=== PATIENT | male | born 1950 | race African-American/Black ===

== ENCOUNTER 2017-03-07 08:47 | Inpatient (IN) | payer OTHER, MEDICAID, MEDICARE ==
[~2017-03-07] VITALS: Ht 180.3 cm; Wt 80.1 kg
[~2017-03-07 08:47] MED LIST: ASPI81 PO; GLIP5 PO; GLUCTAB PO; PRIN10TA PO; TAB-TAB PO; TRAV0.00 EACH EYE
[2017-03-07 08:48] VITALS: BP 226/96; PULSE 99; RESP 18; TEMP 98.6; O2SAT 99
[2017-03-07] MEDS ORDERED: PRAV20TA2 PO (09:13)
[2017-03-07] MEDS ORDERED: METF500T PO (09:13)
[2017-03-07] MEDS ORDERED: LISI10TA3 PO (09:13)
[2017-03-07] MEDS ORDERED: GLIP5TAB8 PO (09:13)
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
[2017-03-07] MEDS ORDERED: SODIUM CHLORIDE 0.9% FLUSH 10 ML FLUSH IVF PRN (10:30)
[2017-03-07 10:36] LABS: AUTOMATED NEUTROPHIL # 3.1 TH/MM3 (1.8-7.7); BASOPHIL % 0.7 % (0.0-2.0); EOSINOPHIL # 0.2 TH/MM3 (0-0.4); EOSINOPHIL % 2.5 % (0.0-4.0); HEMOGLOBIN 13.4 GM/DL (13.0-17.0); LYMPH % 35.3 % (9.0-44.0); LYMPHOCYTE # 2.2 TH/MM3 (1.0-4.8); MEAN CELL VOLUME 86.2 FL (80.0-100.0); MEAN CORPUSCULAR HEMOGLOBIN 28.2 PG (27.0-34.0); MEAN CORPUSCULAR HGB CONC 32.7 % (32.0-36.0); MEAN PLATELET VOLUME 9.8 FL (7.0-11.0); MONO % 12.2 % (0.0-8.0); MONOCYTE # 0.8 TH/MM3 (0-0.9); NEUT % 49.3 % (16.0-70.0); PLATELET COUNT 134 TH/MM3 (150-450); RED BLOOD COUNT 4.76 MIL/MM3 (4.50-5.90); RED CELL DISTRIBUTION WIDTH 12.4 % (11.6-17.2); WHITE BLOOD COUNT 6.3 TH/MM3 (4.0-11.0)
[2017-03-07 10:54] LABS: BICARBONATE 29.5 MEQ/L (21.0-32.0); CALCIUM 9.8 MG/DL (8.5-10.1); CREATININE 0.79 MG/DL (0.60-1.30)
[2017-03-07 11:15] LABS: INTERNATIONAL NORMALIZED RATIO 1.1 RATIO; PROTHROMBIN TIME - PATIENT 11.6 SEC (9.8-11.6)
[2017-03-07] MEDS ORDERED: IOHEXOL 350 MG/ML 10 ML VIAL (for RAD DIAG) IVCONTRAST ONE (11:49)
--- NOTE | 2017-03-07 15:04 | RADRPT ---
EXAM DATE/TIME: 03/07/2017 11:14 [facility] COMPARISON: No previous studies available for comparison. INDICATIONS : Possible occlusion. IV CONTRAST: 115 cc Omnipaque 350 (iohexol) IV ; Cumulative dose for multiple exams. RADIATION DOSE: 14.21 CTDIvol (mGy) MEDICAL HISTORY : Hypertension. Cardiovascular disease diabetes SURGICAL HISTORY : None. ENCOUNTER: Initial ACUITY: 2 days PAIN SCALE: 0/10 LOCATION: Right Foot TECHNIQUE: Volumetric scanning was performed using a multi-row detector CT scanner. The data was post processed with a variety of visualization algorithms including full volume maximum intensity projection, multi -planar sliding thin slab reformation, curved planar reformation, and surface rendering techniques. Using automated exposure control and adjustment of the mA and/or kV according to patient size, radiat ion dose was kept as low as reasonably achievable to obtain optimal diagnostic quality images. DICO M format image data is available electronically for review and comparison. FINDINGS: Please see the CTA of the thoracic aorta reported separately. Aorta/inflow: There is limited opacification of the abdominal aorta and inflow vessels. There is diffuse calcified and noncalcified atheromatous plaque throughout the infrarenal abdominal aorta generating an irregula r luminal contour but no hemodynamically significant stenosis or aneurysmal change. Noncalcified athe romatous plaque within the right common iliac artery generates a 40% stenosis. The external iliac art triny on the right is patent. The left common iliac artery is patent although with diffuse atherosclero tic plaque. The left external iliac artery is chronically occluded. This vessel is small and felt to be long-term occluded. The left internal iliac artery and right internal iliac artery are stenotic at their origins. The celiac, SMA, and renal arteries are patent. SAMUEL is occluded. Right lower extremity: The common femoral artery and profunda femoris are patent. There is occlusion of the entire SFA. Katelynn t reconstitution of the [id number] popliteal artery observed with the below-knee popliteal artery patent. Significant trifurcation disease with diffuse calcified atherosclerotic plaque. The calcifie d nature in combination with the poor opacification with the contrast bolus is significantly limits t he patency evaluation of the trifurcation vessels. The posterior tibial artery is felt patent. The an terior tibial artery has multiple moderate stenoses scattered throughout but a dorsalis pedis artery is appreciated. The peroneal artery is diffusely small in caliber. Left lower extremity: The there is reconstitution of the most inferior portion of the common femoral artery. The profunda f emoris is patent. There is limited opacification of the left SFA due to the proximal occlusion. Multi ple moderate stenoses scattered throughout. The popliteal artery is weakly opacified. A 50% stenosis is seen in the [id number] extent at the level of the femoral metaphysis. There is a short segment occlusion at the level of the tibial plateaus. The below-knee popliteal artery is diffusely small in caliber. The trifurcation vessels are heavily calcified proximally limiting their patency evaluation . The posterior tibial artery is felt patent. The anterior tibial artery shows multiple moderate sten oses proximally. The peroneal artery is extremely small in caliber and tapers within the distal calf. Other structures: 2 subtle low-density lesions are seen involving segment 4 of the liver. These measure 15 mm and 13 mm . The liver is diffusely low in attenuation consistent with fatty infiltration. Small calcified galls tones within an otherwise normal-appearing gallbladder. CONCLUSION: 1. 2 lesions involving segment 4 the liver. Further evaluation is suggested utilizing MRI. 2. Hepatic steatosis. 3. 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 The righ t common iliac artery shows moderate stenosis. 4. Right lower extremity shows occlusion of the SFA with reconstitution of the popliteal artery. Runo ff to the foot is via the posterior tibial artery and diseased anterior tibial artery. 5. Left lower extremity shows reconstitution of the common femoral artery with significant popliteal disease. Runoff is via a posterior tibial artery and diseased anterior tibial artery. Raul Ley Jr., MD on March 07, 2017 at 14:28 Board Certified Radiologist. This report was verified electronically.
--- NOTE | 2017-03-07 15:34 | RADRPT ---
EXAM DATE/TIME: 03/07/2017 11:14 [facility] COMPARISON: CTA RUNOFF W 3D RECON, March 07, 2017, 11:14. INDICATIONS : Possible occlusion. IV CONTRAST: 115 cc Omnipaque 350 (iohexol) IV ; Cumulative dose for multiple exams. RADIATION DOSE: 14.21 CTDIvol (mGy) MEDICAL HISTORY : Cardiovascular disease. Hypertension. Diabetes SURGICAL HISTORY : None. ENCOUNTER: Initial ACUITY: 2 days PAIN SCALE: 0/10 LOCATION: Right Foot TECHNIQUE: Volumetric scanning was performed using a multi-row detector CT scanner. The data was post processed with a variety of visualization algorithms including full volume maximum intensity projection, multi -planar sliding thin slab reformation, curved planar reformation, and surface rendering techniques. Using automated exposure control and adjustment of the mA and/or kV according to patient size, radiat ion dose was kept as low as reasonably achievable to obtain optimal diagnostic quality images. DICOM format image data is available electronically for review and comparison. FINDINGS: LUNGS: Normal bibasilar opacities at the lung bases likely reflecting atelectasis. MEDIASTINUM: No abnormally enlarged lymph nodes by CT criteria. No axillary or hilar abnormalities are identified. ABDOMEN: Diffusely decreased hepatic echogenicity with ill-defined hypodense lesions in segment 4 and adjacent to falciform ligament. Distribution favors focal fatty change. There are calcified gallstones in the gallbladder which otherwise appears unremarkable. Spleen, adrenal glands, and pancreas are grossly u nremarkable. Kidneys demonstrate symmetrical enhancement without evidence of hydronephrosis. No signi ficant free fluid or drainable fluid collection in the abdomen. Bowel appears grossly unremarkable. T here is a small fat containing periumbilical intra-abdominal hernia. PELVIS: No evidence of free fluid or pelvic mass. No abnormally enlarged inguinal or retroperitoneal lymph no spike are present. The bladder is unremarkable. THORACIC AORTA: The thoracic aortic root is normal with normal branching of the great vessels. Proximal branch vesse ls are patent. There is no evidence of aneurysm or dissection. ABDOMINAL AORTA: Diffuse mixed plaque in the infrarenal abdominal aorta without significant flow-limiting stenosis or aneurysm. Normal standard celiac anatomy with direct origin of the left gastric artery from the aorta . Celiac is small in caliber likely circumferential [id number] stenosis at the origin. SMA is p atent with mild to moderate focal stenosis proximally. SAMUEL is occluded. Serial bilateral renal arteri es. Right renal artery is patent. Likely mild to moderate focal stenosis of the proximal left renal a rtery. PELVIC VESSELS: Heavily diseased iliac arteries with complete opacification. Moderate stenosis of the proximal right common iliac artery secondary to mixed plaque. Moderate stenosis of the mid to distal left common christina ac artery secondary to circumferential noncalcified plaque. Heavily diseased internal iliac arteries bilaterally. Occluded left external iliac and common femoral arteries with reconstitution of the very distal common femoral artery at the bifurcation. Right external iliac artery is patent. CONCLUSION: 1. No flow-limiting stenosis, aneurysm or dissection involving the thoracic aorta. Proximal arch vess els are patent. 2. Diffuse atherosclerotic disease involving the infrarenal abdominal aorta without significant aneur ysm or focal flow-limiting aortic stenosis. 3. 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 4. Diffusely decreased hepatic attenuation consistent with hepatic steatosis with 2 small ill-defined sub 1.5 cm lesions in segment 4 of the liver. Distribution favors focal fatty change although nonspe cific. Report from MRI examination of 2010 appears to describe similar lesions although images are no t available for review at this time. 5. Ancillary findings include cholelithiasis and small fat containing anterior abdominal periumbilica l hernia. Romie Anaya MD on March 07, 2017 at 15:18 Board Certified Radiologist. This report was verified electronically.
[2017-03-07] MEDS ORDERED: ONDANSETRON HCL 4 MG/2 ML VIAL IVP PRN (16:00)
[2017-03-07] MEDS ORDERED: ACETAMINOPHEN 325 MG TAB PO PRN (16:00)
[2017-03-07] MEDS ORDERED: MAGNESIUM HYDROXIDE SUSP 30 ML CUP PO PRN (16:00)
[2017-03-07] MEDS ORDERED: ACETAMINOPHEN/HYDROcodone 325 MG/5 MG TAB PO PRN (16:00)
[2017-03-07] MEDS ORDERED: NALOXONE HCL 0.4 MG/ML AMP IV PUSH PRN (16:00)
[2017-03-07] MEDS ORDERED: LACTULOSE SYRUP 20 GM/30 ML CUP PO PRN (16:00)
[2017-03-07] MEDS ORDERED: SODIUM CHLORIDE 0.9% FLUSH 10 ML FLUSH IV FLUSH PRN (16:00)
[2017-03-07] MEDS ORDERED: DEXTROSE 50% IN WATER 50 ML VIAL(D50) IV PUSH PRN (16:00)
[2017-03-07] MEDS ORDERED: GLUCAGON 1 MG/ML VIAL OTHER PRN (16:00)
[2017-03-07] MEDS ORDERED: SENNOSIDES 8.6 MG TAB PO PRN (16:00)
[2017-03-07] MEDS ORDERED: BISACODYL 10 MG SUPP RECTAL PRN (16:00)
[2017-03-07] MEDS: INSULIN ASPART SUPPLEMENTAL SCALE SQ SCH ×2 (17:00→21:00)
[2017-03-07 17:20] VITALS: BP 195/94; PULSE 87; RESP 17; TEMP 97; O2SAT 100
--- NOTE | 2017-03-07 17:49 | PD.CAR.PN ---
CVT Progress Note Subjective/Hospital Course: Referral received Full consult to follow Obdulio Colbert Objective: Vital Signs Date Time Temp Pulse Resp B/P (MAP) Pulse Ox O2 Delivery O2 Flow Rate FiO2 03/07/17 17:20 97.0 87 17 195/94 (127) 100 03/07/17 08:48 98.6 99 18 226/96 (139) 99 Room Air Labs: Laboratory Tests Test 03/07/17 10:20 White Blood Count 6.3 TH/MM3 (4.0-11.0) Red Blood Count 4.76 MIL/MM3 (4.50-5.90) Hemoglobin 13.4 GM/DL (13.0-17.0) Hematocrit 41.0 % (39.0-51.0) Mean Corpuscular Volume 86.2 FL (80.0-100.0) Mean Corpuscular Hemoglobin 28.2 PG (27.0-34.0) Mean Corpuscular Hemoglobin Concent 32.7 % (32.0-36.0) Red Cell Distribution Width 12.4 % (11.6-17.2) Platelet Count 134 TH/MM3 (150-450) Mean Platelet Volume 9.8 FL (7.0-11.0) Neutrophils (%) (Auto) 49.3 % (16.0-70.0) Lymphocytes (%) (Auto) 35.3 % (9.0-44.0) Monocytes (%) (Auto) 12.2 % (0.0-8.0) Eosinophils (%) (Auto) 2.5 % (0.0-4.0) Basophils (%) (Auto) 0.7 % (0.0-2.0) Neutrophils # (Auto) 3.1 TH/MM3 (1.8-7.7) Lymphocytes # (Auto) 2.2 TH/MM3 (1.0-4.8) Monocytes # (Auto) 0.8 TH/MM3 (0-0.9) Eosinophils # (Auto) 0.2 TH/MM3 (0-0.4) Basophils # (Auto) 0.0 TH/MM3 (0-0.2) CBC Comment DIFF FINAL Differential Comment Prothrombin Time 11.6 SEC (9.8-11.6) Prothromb Time International Ratio 1.1 RATIO Activated Partial Thromboplast Time 23.8 SEC (24.3-30.1) Blood Urea Nitrogen 11 MG/DL (7-18) Creatinine 0.79 MG/DL (0.60-1.30) Random Glucose 232 MG/DL (74-106) Calcium Level 9.8 MG/DL (8.5-10.1) Sodium Level 135 MEQ/L (136-145) Potassium Level 5.2 MEQ/L (3.5-5.1) Chloride Level 102 MEQ/L (98-107) Carbon Dioxide Level 29.5 MEQ/L (21.0-32.0) Anion Gap 4 MEQ/L (5-15) Estimat Glomerular Filtration Rate 119 ML/MIN (>89) Result Diagram: 03/07/17 1020 03/07/17 1020 Gregory Hunter MD Mar 07, 2017 17:49
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
[2017-03-07 20:00] VITALS: BP 126/70; PULSE 91; RESP 20; TEMP 97.7; O2SAT 98
--- NOTE | 2017-03-07 20:36 | EKG ---
Date Performed: 03/07/2017 Time Performed: 19:48:10 PTAGE: 66 years EKG: Sinus rhythm NORMAL ECG No significant change from prior electrocardiogram. PREVIOUS TRACING : 01/16/2014 21.15 DOCTOR: Daniel Valles Interpretating Date/Time 03/07/2017 20:35:28
[2017-03-07] MEDS: SODIUM CHLORIDE 0.9% FLUSH 10 ML FLUSH IV FLUSH SCH (21:00)
[2017-03-07] MEDS: DOCUSATE SODIUM 50 MG/SENNA 8.6 MG TAB PO SCH (21:00)
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
[2017-03-08] VITALS: BP 103/63; PULSE 98; RESP 17; TEMP 97.8; O2SAT 96
[2017-03-08 06:06] LABS: AUTOMATED NEUTROPHIL # 2.9 TH/MM3 (1.8-7.7); BASOPHIL # 0.1 TH/MM3 (0-0.2); EOSINOPHIL # 0.2 TH/MM3 (0-0.4); EOSINOPHIL % 2.8 % (0.0-4.0); HEMATOCRIT 38.8 % (39.0-51.0); HEMOGLOBIN 12.5 GM/DL (13.0-17.0); LYMPH % 39.5 % (9.0-44.0); LYMPHOCYTE # 2.5 TH/MM3 (1.0-4.8); MEAN CELL VOLUME 86.2 FL (80.0-100.0); MEAN CORPUSCULAR HEMOGLOBIN 27.8 PG (27.0-34.0); MEAN CORPUSCULAR HGB CONC 32.3 % (32.0-36.0); MEAN PLATELET VOLUME 9.8 FL (7.0-11.0); MONO % 10.6 % (0.0-8.0); MONOCYTE # 0.7 TH/MM3 (0-0.9); NEUT % 46.1 % (16.0-70.0); PLATELET COUNT 133 TH/MM3 (150-450); RED CELL DISTRIBUTION WIDTH 12.2 % (11.6-17.2); WHITE BLOOD COUNT 6.3 TH/MM3 (4.0-11.0)
[2017-03-08 06:36] LABS: ALBUMIN 2.8 GM/DL (3.4-5.0); ALKALINE PHOSPHATASE 82 U/L (45-117); ALT (GPT) 66 U/L (12-78); AST (GOT) 45 U/L (15-37); BICARBONATE 27.1 MEQ/L (21.0-32.0); BLOOD UREA NITROGEN 11 MG/DL (7-18); CALCIUM 8.9 MG/DL (8.5-10.1); CHLORIDE 105 MEQ/L (98-107); CHOLESTEROL 111 MG/DL (120-200); CHOLESTEROL/ HDL RATIO 4.08 RATIO; CREATININE 0.65 MG/DL (0.60-1.30); GLOMERULAR FILTRATION RATE 149 ML/MIN (>89); GLUCOSE,RANDOM 155 MG/DL (74-106); HDL CHOLESTEROL 27.2 MG/DL (40.0-60.0); LDL CHOLESTEROL 69 MG/DL (0-99); SODIUM (NA) 138 MEQ/L (136-145); TOTAL BILIRUBIN ADULT 0.7 MG/DL (0.2-1.0); TOTAL PROTEIN 7.1 GM/DL (6.4-8.2); TRIGLYCERIDES 72 MG/DL (42-150)
[2017-03-08] MEDS: PRAVASTATIN SOD 20 MG TAB PO SCH (08:25)
[2017-03-08] MEDS: ASPIRIN 325 MG TAB PO SCH (08:25)
[2017-03-08] MEDS: LISINOPRIL 10 MG TAB PO SCH (08:25)
[2017-03-08] MEDS: DOCUSATE SODIUM 50 MG/SENNA 8.6 MG TAB PO SCH ×2 (08:26→21:00)
[2017-03-08] MEDS: INSULIN ASPART SUPPLEMENTAL SCALE SQ SCH ×4 (08:27→22:29)
[2017-03-08] MEDS: SODIUM CHLORIDE 0.9% FLUSH 10 ML FLUSH IV FLUSH SCH ×2 (08:27→22:25)
[2017-03-08 09:00] VITALS: BP 94/38; PULSE 81; RESP 14; TEMP 97.3; O2SAT 100
[2017-03-08 12:56] VITALS: BP 97/32; PULSE 82; RESP 16; TEMP 96.9; O2SAT 96
--- NOTE | 2017-03-08 13:33 | HHI.PR ---
Subjective Remarks Patient reports he is doing ok. Toe swelling is unchanged. Objective Vitals Vital Signs Date Time Temp Pulse Resp B/P (MAP) Pulse Ox O2 Delivery O2 Flow Rate FiO2 03/08/17 12:56 96.9 82 16 97/32 (53) 96 03/08/17 09:00 97.3 81 14 94/38 (56) 100 03/08/17 00:00 97.8 98 17 103/63 (76) 96 03/07/17 20:00 97.7 91 20 126/70 (88) 98 03/07/17 17:20 97.0 87 17 195/94 (127) 100 I/O 03/07/17 03/07/17 03/07/17 03/08/17 03/08/17 03/08/17 07:00 15:00 23:00 07:00 15:00 23:00 Intake Total 0 ml 680 ml Balance 0 ml 680 ml Intake Oral 0 ml 680 ml # Voids 0 3 # Bowel Movements 0 Result Diagram: 03/08/17 0523 03/08/17 05 Objective Remarks GENERAL: This is a well-nourished, well-developed patient, in no apparent distress. CARDIOVASCULAR: Regular rate and rhythm without murmurs, gallops, or rubs. RESPIRATORY: Clear to auscultation. Breath sounds equal bilaterally. No wheezes , rales, or rhonchi. GASTROINTESTINAL: Abdomen soft, non-tender, nondistended. MUSCULOSKELETAL: Right second toe appears swollen distally, very boggy, no surrounding induration or erythema.Decreased capillary refill in the toe. Tender to palpation. NEUROLOGICAL: Awake and alert. Normal speech. A/P Problem List: (1) Ischemia of both lower extremities ICD Code: I99.8 - Other disorder of circulatory system (2) Claudication in peripheral vascular disease ICD Code: I73.9 - Peripheral vascular disease, unspecified (3) Peripheral arterial disease ICD Code: I73.9 - Peripheral vascular disease, unspecified Status: Acute (4) Hypertension ICD Code: I10 - Hypertension Status: Acute Assessment and Plan 66-year-old man with Peripheral artery disease Ischemia of Lower extremities Claudication peripheral vascular disease Aorta with runoff CTA with finding of right lower extremity with occlusion of the SFA and left lower extremity with reconstitution of the, femoral artery with significant popliteal disease Vascular surgery following and recommends aorto femoral bipass and right fempop bypass. Aspirin and continue with statin Carotid ultrasound, 2-D echo pending Pain management accordingly Podiatry consulted for possible toe gangrene Benign labile hypertension Allow for permissive hypertension and resume BP med accordingly Diabetes type 2 Hold oral hypoglycemic agents Start insulin sliding scale Hemoglobin A1c 7.8 Thrombocytopenia Likely secondary to liver disease due to previous history of alcohol abuse Monitor platelets 1.2 lesion in the liver per aorta run off CTA This appears stable per MRI in 2010 Tobacco abuse Tobacco counseling cessation provided DVT prophylaxis: Bilateral SCDs. Start heparin for DVT PPx Paul Funk MD Mar 08, 2017 13:33
[2017-03-08 16:31] LABS: HEMOGLOBIN A1C 7.8 % (4.3-6.0)
[2017-03-08 18:44] VITALS: BP 100/48; PULSE 85; RESP 16; TEMP 97.5; O2SAT 100
[2017-03-08 20:00] VITALS: BP 164/76; PULSE 93; RESP 20; TEMP 98.2; O2SAT 98
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
[2017-03-09] VITALS: BP 123/57; PULSE 97; RESP 18; TEMP 97.7; O2SAT 98
[2017-03-09 05:49] LABS: HEMATOCRIT 39.8 % (39.0-51.0); HEMOGLOBIN 12.7 GM/DL (13.0-17.0); MEAN CELL VOLUME 86.8 FL (80.0-100.0); MEAN CORPUSCULAR HEMOGLOBIN 27.8 PG (27.0-34.0); MEAN PLATELET VOLUME 9.7 FL (7.0-11.0); PLATELET COUNT 137 TH/MM3 (150-450); RED BLOOD COUNT 4.58 MIL/MM3 (4.50-5.90); RED CELL DISTRIBUTION WIDTH 12.2 % (11.6-17.2)
[2017-03-09 06:15] LABS: BICARBONATE 28.2 MEQ/L (21.0-32.0); CREATININE 0.72 MG/DL (0.60-1.30)
[2017-03-09] MEDS: LISINOPRIL 10 MG TAB PO SCH (07:51)
[2017-03-09] MEDS: PRAVASTATIN SOD 20 MG TAB PO SCH (07:51)
[2017-03-09] MEDS: INSULIN ASPART SUPPLEMENTAL SCALE SQ SCH ×4 (07:52→19:59)
[2017-03-09] MEDS: ASPIRIN 325 MG TAB PO SCH (07:53)
[2017-03-09] MEDS: HEPARIN SODIUM - SQ 10,000 UNITS/ML VIAL SQ SCH ×2 (07:53→19:54)
[2017-03-09] MEDS: SODIUM CHLORIDE 0.9% FLUSH 10 ML FLUSH IV FLUSH SCH ×2 (07:53→20:00)
[2017-03-09] MEDS: DOCUSATE SODIUM 50 MG/SENNA 8.6 MG TAB PO SCH ×2 (07:53→19:59)
[2017-03-09 08:00] VITALS: BP 173/81; PULSE 79; RESP 17; TEMP 97.1; O2SAT 99
[2017-03-09 12:00] VITALS: BP 130/59; PULSE 86; RESP 18; TEMP 97.5; O2SAT 99
[2017-03-09 16:00] VITALS: BP 136/82; PULSE 70; RESP 18; TEMP 97.5; O2SAT 99
--- NOTE | 2017-03-09 16:12 | HHI.PR ---
Subjective Remarks Patient reports he is feeling okay. Right second toe swelling is unchanged. Objective Vitals Vital Signs Date Time Temp Pulse Resp B/P (MAP) Pulse Ox O2 Delivery O2 Flow Rate FiO2 03/09/17 12:00 97.5 86 18 130/59 (82) 99 03/09/17 08:00 97.1 79 17 173/81 (111) 99 03/09/17 00:00 97.7 97 18 123/57 (79) 98 03/08/17 20:00 98.2 93 20 164/76 (105) 98 03/08/17 18:44 97.5 85 16 100/48 (65) 100 I/O 03/08/17 03/08/17 03/08/17 03/09/17 03/09/17 03/09/17 07:00 15:00 23:00 07:00 15:00 23:00 Intake Total 680 ml 1000 ml 0 ml Balance 680 ml 1000 ml 0 ml Intake Oral 680 ml 1000 ml IV Total 0 ml # Voids 3 3 # Bowel Movements 1 Result Diagram: 03/09/17 0505 03/09/17 0505 Objective Remarks GENERAL: This is a well-nourished, well-developed patient, in no apparent distress. CARDIOVASCULAR: Regular rate and rhythm without murmurs, gallops, or rubs. RESPIRATORY: Clear to auscultation. Breath sounds equal bilaterally. No wheezes , rales, or rhonchi. GASTROINTESTINAL: Abdomen soft, non-tender, nondistended. MUSCULOSKELETAL: Right second toe appears swollen distally, very boggy, no surrounding induration or erythema.Decreased capillary refill in the toe. Tender to palpation. NEUROLOGICAL: Awake and alert. Normal speech. A/P Problem List: (1) Ischemia of both lower extremities ICD Code: I99.8 - Other disorder of circulatory system (2) Claudication in peripheral vascular disease ICD Code: I73.9 - Peripheral vascular disease, unspecified (3) Peripheral arterial disease ICD Code: I73.9 - Peripheral vascular disease, unspecified Status: Acute (4) Hypertension ICD Code: I10 - Hypertension Status: Acute Assessment and Plan 66-year-old man with Peripheral artery disease Ischemia of Lower extremities Claudication peripheral vascular disease Aorta with runoff CTA with finding of right lower extremity with occlusion of the SFA and left lower extremity with reconstitution of the, femoral artery with significant popliteal disease Vascular surgery following and recommends aorto femoral bipass and right fempop bypass. Plan for surgery on Sunday. Aspirin and continue with statin Carotid ultrasound, 2-D echo pending Pain management accordingly Podiatry consulted for possible toe gangrene Benign labile hypertension Allow for permissive hypertension and resume BP med accordingly Diabetes type 2 Hold oral hypoglycemic agents Sliding-scale insulin Hemoglobin A1c 7.8 Thrombocytopenia Likely secondary to liver disease due to previous history of alcohol abuse Monitor platelets 1.2 cm lesion in the liver per aorta run off CTA This appears stable per MRI in 2010 Tobacco abuse Tobacco counseling cessation provided DVT prophylaxis: Bilateral SCDs. heparin for DVT PPx Discharge Planning Plan for surgery on Sunday per vascular surgery Paul Funk MD Mar 09, 2017 16:12
--- NOTE | 2017-03-09 16:44 | PD.CAR.PN ---
CVT Progress Note Subjective/Hospital Course: Referral received Full consult to follow Obdulio Colbert 03/09/17 I reviewed laboratory and diagnostic procedures. This gentleman a vasculopath with severe vascular changes. While the aorta is patent, the origins of both common iliac arteries are significantly stenosed and it is felt this would be probably doable by endovascular stenting. As I go lower down, the left external iliac artery is completely occluded and the left common femoral reconstitutes from some branches around it. On the right side, external iliac is patent but severely stenosed and diseased. I can barely see the common femoral artery here. The SFA is bilaterally occluded and then popliteal artery reconstitutes as a weak vessel with very poor flow. Based on the above findings, in this age group the patient needs a more radical procedure to revascularize him because if we start stenting, I can stent the right side, leaving still external iliac on the left occluded and the patient would at that point need a fem-fem bypass to bring some blood to the left leg. While the right leg is the problem, that would worsen the same. 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 At some point in the future, we can probably go ahead with left fem-pop bypass, but right now I would stick to the diseased side with the gangrenous ulcer which is the right side. Anything less than this for this patient with ischemic pain at rest and ulcer is insufficient and will result in a prolonged course of placing various stents and bypasses until the patient finally loses his leg. In addition, flow limiting factors are below the level of the knee, but I cannot really see very well if all the three vessels are open. I believe there are only two vessels open on each side below the knee, although the blood flow is so faint that it is hard to tell. Once on the table, we may obtain arteriogram to look at this better. At this point, In summary I recommend aortobifemoral bypass and right fem-pop bypass and the patient agrees with the plan. He is a moderate risk patient considering his medical history. Cardiology help is appreciated. As far as carotid disease is concerned patient had the bilateral ultrasound and he has a about 60-70% left carotid stenosis which is currently asymptomatic In face of his peripheral vascular disease I would leave it at that and I will follow the patient now future in the office at which point he'll get a carotid CTA Patient scheduled for aortobifemoral bypass and right femoral-popliteal bypass for Sunday Objective: Vital Signs Date Time Temp Pulse Resp B/P (MAP) Pulse Ox O2 Delivery O2 Flow Rate FiO2 03/09/17 12:00 97.5 86 18 130/59 (82) 99 03/09/17 08:00 97.1 79 17 173/81 (111) 99 03/09/17 00:00 97.7 97 18 123/57 (79) 98 03/08/17 20:00 98.2 93 20 164/76 (105) 98 03/08/17 18:44 97.5 85 16 100/48 (65) 100 Labs: Laboratory Tests Test 03/09/17 05:05 White Blood Count 6.0 TH/MM3 (4.0-11.0) Red Blood Count 4.58 MIL/MM3 (4.50-5.90) Hemoglobin 12.7 GM/DL (13.0-17.0) Hematocrit 39.8 % (39.0-51.0) Mean Corpuscular Volume 86.8 FL (80.0-100.0) Mean Corpuscular Hemoglobin 27.8 PG (27.0-34.0) Mean Corpuscular Hemoglobin Concent 32.0 % (32.0-36.0) Red Cell Distribution Width 12.2 % (11.6-17.2) Platelet Count 137 TH/MM3 (150-450) Mean Platelet Volume 9.7 FL (7.0-11.0) Blood Urea Nitrogen 12 MG/DL (7-18) Creatinine 0.72 MG/DL (0.60-1.30) Random Glucose 192 MG/DL (74-106) Calcium Level 9.0 MG/DL (8.5-10.1) Sodium Level 139 MEQ/L (136-145) Potassium Level 4.4 MEQ/L (3.5-5.1) Chloride Level 105 MEQ/L (98-107) Carbon Dioxide Level 28.2 MEQ/L (21.0-32.0) Anion Gap 6 MEQ/L (5-15) Estimat Glomerular Filtration Rate 132 ML/MIN (>89) Result Diagram: 03/09/17 0505 03/09/17 0505 Gregory Hunter MD Mar 09, 2017 16:43
--- NOTE | 2017-03-09 16:54 | ECHRPT ---
Indication: aorta femoral bypass CONCLUSIONS Normal left ventricular size. Mild ro moderate concentric left ventricular hypertrophy. The left ventricular systolic function is normal with an estimated ejection fraction in the range of 60-65%. Normal wall motion. Mild mitral annular calcification. Trace mitral valve regurgitation. Trileaflet aortic valve. Moderate aortic valve sclerosis is present. There is mild tricuspid valve regurgitation. BP: / HR: Rhythm: MEASUREMENTS (Male / Female) Normal Values Technical Quality:Good 2D ECHO LV Diastolic Diameter PLAX 3.8 cm 4.2 - 5.9 / 3.9 - 5.3 cm LV Systolic Diameter PLAX 2.8 cm IVS Diastolic Thickness 1.2 cm 0.6 - 1.0 / 0.6 - 0.9 cm LVPW Diastolic Thickness 1.0 cm 0.6 - 1.0 / 0.6 - 0.9 cm LV Relative Wall Thickness 0.6 RV Internal Dim ED PLAX 2.2 cm M-MODE Aortic Root Diameter MM 2.6 cm LA Systolic Diameter MM 2.6 cm LA Ao Ratio MM 1.0 AV Cusp Separation MM 1.6 cm DOPPLER Mitral E Point Velocity 66.1 cm/s Mitral A Point Velocity 69.6 cm/s Mitral E to A Ratio 0.9 LV E' Lateral Velocity 8.9 cm/s Mitral E to LV E' Lateral Ratio 7.5 LV E' Septal Velocity 6.4 cm/s Mitral E to LV E' Septal Ratio 10.3 FINDINGS LEFT VENTRICLE Normal left ventricular size. Mild ro moderate concentric left ventricular hypertrophy. The left ventricular systolic function is normal with an estimated ejection fraction in the range of 60-65%. Normal wall motion. RIGHT VENTRICLE Normal right ventricular size and systolic function. LEFT ATRIUM The left atrial size is normal. RIGHT ATRIUM The right atrial size is normal. ATRIAL SEPTUM Normal atrial septal thickness without atrial level shunting by limited color doppler interrogation. AORTA The aortic root and proximal ascending aorta are normal in size on limited imaging. MITRAL VALVE Mild mitral annular calcification. Trace mitral valve regurgitation. AORTIC VALVE Trileaflet aortic valve. Moderate aortic valve sclerosis is present. TRICUSPID VALVE Structurally normal tricuspid valve. There is mild tricuspid valve regurgitation. PULMONARY VALVE The pulmonary valve is not well visualized. VESSELS The inferior vena cava is normal in size. PERICARDIUM No pericardial effusion. Zaire Stapleton MD (Electronically Signed) Final Date:09 March 2017 16:54
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
[2017-03-09 20:00] VITALS: BP 138/65; PULSE 85; RESP 18; TEMP 97.9; O2SAT 99
[2017-03-10] VITALS: BP 116/63; PULSE 88; RESP 18; TEMP 97.7; O2SAT 96
[2017-03-10 08:00] VITALS: BP 142/70; PULSE 77; RESP 17; TEMP 97.3; O2SAT 100
[2017-03-10] MEDS: INSULIN ASPART SUPPLEMENTAL SCALE SQ SCH ×4 (08:00→19:19)
[2017-03-10] MEDS: PRAVASTATIN SOD 20 MG TAB PO SCH (08:18)
[2017-03-10] MEDS: DOCUSATE SODIUM 50 MG/SENNA 8.6 MG TAB PO SCH ×2 (08:18→19:17)
[2017-03-10] MEDS: HEPARIN SODIUM - SQ 10,000 UNITS/ML VIAL SQ SCH ×2 (08:18→19:18)
[2017-03-10] MEDS: LISINOPRIL 10 MG TAB PO SCH (08:18)
[2017-03-10] MEDS: ASPIRIN 325 MG TAB PO SCH (08:18)
[2017-03-10] MEDS: SODIUM CHLORIDE 0.9% FLUSH 10 ML FLUSH IV FLUSH SCH ×2 (08:19→19:17)
--- NOTE | 2017-03-10 11:23 | HHI.PR ---
Subjective Remarks Patient reports he is feeling ok. Toe swelling is unchanged. Pain is controlled. Objective Vitals Vital Signs Date Time Temp Pulse Resp B/P (MAP) Pulse Ox O2 Delivery O2 Flow Rate FiO2 03/10/17 08:00 97.3 77 17 142/70 (94) 100 03/10/17 00:00 97.7 88 18 116/63 (80) 96 03/09/17 20:00 97.9 85 18 138/65 (89) 99 03/09/17 16:00 97.5 70 18 136/82 (100) 99 03/09/17 12:00 97.5 86 18 130/59 (82) 99 I/O 03/09/17 03/09/17 03/09/17 03/10/17 03/10/17 03/10/17 07:00 15:00 23:00 07:00 15:00 23:00 Intake Total 0 ml 960 ml Balance 0 ml 960 ml Intake Oral 960 ml IV Total 0 ml # Voids 4 0 # Bowel Movements 0 Result Diagram: 03/09/17 0505 03/09/17 0505 Objective Remarks GENERAL: This is a well-nourished, well-developed patient, in no apparent distress. CARDIOVASCULAR: Regular rate and rhythm without murmurs, gallops, or rubs. RESPIRATORY: Clear to auscultation. Breath sounds equal bilaterally. No wheezes , rales, or rhonchi. GASTROINTESTINAL: Abdomen soft, non-tender, nondistended. MUSCULOSKELETAL: Right second toe appears swollen distally, very boggy, no surrounding induration or erythema.Decreased capillary refill in the toe. Tender to palpation. NEUROLOGICAL: Awake and alert. Normal speech. A/P Problem List: (1) Ischemia of both lower extremities ICD Code: I99.8 - Other disorder of circulatory system (2) Claudication in peripheral vascular disease ICD Code: I73.9 - Peripheral vascular disease, unspecified (3) Peripheral arterial disease ICD Code: I73.9 - Peripheral vascular disease, unspecified Status: Acute (4) Hypertension ICD Code: I10 - Hypertension Status: Acute Assessment and Plan 66-year-old man with Peripheral artery disease Ischemia of Lower extremities Claudication peripheral vascular disease Aorta with runoff CTA with finding of right lower extremity with occlusion of the SFA and left lower extremity with reconstitution of the, femoral artery with significant popliteal disease Vascular surgery following and recommends aorto femoral bipass and right fempop bypass. Plan for surgery on Sunday. Aspirin and continue with statin Carotid ultrasound shows some some disease, Vascular surgery plan to follow it up outpatient, 2-D echo grossly unremarkable. Pain management accordingly Podiatry following and recommends revascularization first. Hypertension Continue Lasix Diabetes type 2 Hold oral hypoglycemic agents Sliding-scale insulin Hemoglobin A1c 7.8 Thrombocytopenia Likely secondary to liver disease due to previous history of alcohol abuse Monitor platelets 1.2 cm lesion in the liver per aorta run off CTA This appears stable per MRI in 2010 Tobacco abuse Tobacco counseling cessation provided DVT prophylaxis: Bilateral SCDs. heparin for DVT PPx Discharge Planning Plan for surgery on Sunday per vascular surgery Paul Fnuk MD Mar 10, 2017 11:23
--- NOTE | 2017-03-10 11:33 | PD.CAR.PN ---
CVT Progress Note Subjective/Hospital Course: Referral received Full consult to follow Obdulio Colbert 03/09/17 I reviewed laboratory and diagnostic procedures. This gentleman a vasculopath with severe vascular changes. While the aorta is patent, the origins of both common iliac arteries are significantly stenosed and it is felt this would be probably doable by endovascular stenting. As I go lower down, the left external iliac artery is completely occluded and the left common femoral reconstitutes from some branches around it. On the right side, external iliac is patent but severely stenosed and diseased. I can barely see the common femoral artery here. The SFA is bilaterally occluded and then popliteal artery reconstitutes as a weak vessel with very poor flow. Based on the above findings, in this age group the patient needs a more radical procedure to revascularize him because if we start stenting, I can stent the right side, leaving still external iliac on the left occluded and the patient would at that point need a fem-fem bypass to bring some blood to the left leg. While the right leg is the problem, that would worsen the same. 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 At some point in the future, we can probably go ahead with left fem-pop bypass, but right now I would stick to the diseased side with the gangrenous ulcer which is the right side. Anything less than this for this patient with ischemic pain at rest and ulcer is insufficient and will result in a prolonged course of placing various stents and bypasses until the patient finally loses his leg. In addition, flow limiting factors are below the level of the knee, but I cannot really see very well if all the three vessels are open. I believe there are only two vessels open on each side below the knee, although the blood flow is so faint that it is hard to tell. Once on the table, we may obtain arteriogram to look at this better. At this point, In summary I recommend aortobifemoral bypass and right fem-pop bypass and the patient agrees with the plan. He is a moderate risk patient considering his medical history. Cardiology help is appreciated. As far as carotid disease is concerned patient had the bilateral ultrasound and he has a about 60-70% left carotid stenosis which is currently asymptomatic In face of his peripheral vascular disease I would leave it at that and I will follow the patient now future in the office at which point he'll get a carotid CTA Patient scheduled for aortobifemoral bypass and right femoral-popliteal bypass for Sunday03/10/17 Discussed care with patient at length Scheduled to undergo aortobifemoral and right femoral-popliteal bypass Sunday All the questions answered and risks and benefits explained Objective: Vital Signs Date Time Temp Pulse Resp B/P (MAP) Pulse Ox O2 Delivery O2 Flow Rate FiO2 03/10/17 08:00 97.3 77 17 142/70 (94) 100 03/10/17 00:00 97.7 88 18 116/63 (80) 96 03/09/17 20:00 97.9 85 18 138/65 (89) 99 03/09/17 16:00 97.5 70 18 136/82 (100) 99 03/09/17 12:00 97.5 86 18 130/59 (82) 99 Result Diagram: 03/09/17 0505 03/09/17 0505 Gregory Hunter MD Mar 10, 2017 11:33
[2017-03-10 12:00] VITALS: BP 136/75; PULSE 88; RESP 17; TEMP 98.1; O2SAT 100
[2017-03-10 16:00] VITALS: BP 171/81; PULSE 87; RESP 17; TEMP 97.8; O2SAT 99
[2017-03-10] MEDS: cloNIDine HCL 0.1 MG TAB PO PRN (16:28)
[2017-03-10 20:00] VITALS: BP 129/66; PULSE 84; RESP 17; TEMP 96.9; O2SAT 96
[2017-03-11] VITALS (7 sets, daily range): BP systolic 107–173; BP diastolic 58–81; PULSE 75–83; RESP 17–18; TEMP 96.7–98.5; O2SAT 96–100
[2017-03-11] MEDS: SODIUM CHLORIDE 0.9% FLUSH 10 ML FLUSH IV FLUSH SCH ×2 (08:16→19:18)
[2017-03-11] MEDS: ASPIRIN 325 MG TAB PO SCH (08:16)
[2017-03-11] MEDS: HEPARIN SODIUM - SQ 10,000 UNITS/ML VIAL SQ SCH ×2 (08:16→19:19)
[2017-03-11] MEDS: PRAVASTATIN SOD 20 MG TAB PO SCH (08:17)
[2017-03-11] MEDS: LISINOPRIL 10 MG TAB PO SCH (08:17)
[2017-03-11] MEDS: INSULIN ASPART SUPPLEMENTAL SCALE SQ SCH ×4 (08:17→19:20)
[2017-03-11] MEDS: DOCUSATE SODIUM 50 MG/SENNA 8.6 MG TAB PO SCH ×2 (08:17→19:18)
--- NOTE | 2017-03-11 11:22 | HHI.PR ---
Subjective Remarks Patient reports he is feeling okay. No new issues today. Objective Vitals Vital Signs Date Time Temp Pulse Resp B/P (MAP) Pulse Ox O2 Delivery O2 Flow Rate FiO2 03/11/17 08:00 97.2 76 17 139/75 (96) 100 03/11/17 04:00 97.1 82 17 129/65 (86) 96 03/11/17 00:00 96.7 75 17 125/65 (85) 97 03/10/17 20:00 96.9 84 17 129/66 (87) 96 03/10/17 16:00 97.8 87 17 171/81 (111) 99 03/10/17 12:00 98.1 88 17 136/75 (95) 100 I/O 03/10/17 03/10/17 03/10/17 03/11/17 03/11/17 03/11/17 07:00 15:00 23:00 07:00 15:00 23:00 Intake Total 720 ml 250 ml Balance 720 ml 250 ml Intake Oral 720 ml 250 ml # Voids 0 2 2 # Bowel Movements 0 0 Result Diagram: 03/09/17 0505 03/09/17 0505 Objective Remarks GENERAL: This is a well-nourished, well-developed patient, in no apparent distress. CARDIOVASCULAR: Regular rate and rhythm without murmurs, gallops, or rubs. RESPIRATORY: Clear to auscultation. Breath sounds equal bilaterally. No wheezes , rales, or rhonchi. GASTROINTESTINAL: Abdomen soft, non-tender, nondistended. MUSCULOSKELETAL: Right second toe appears swollen distally, very boggy, no surrounding induration or erythema.Decreased capillary refill in the toe. Tender to palpation. Plantar left foot has a callous. NEUROLOGICAL: Awake and alert. Normal speech. A/P Problem List: (1) Ischemia of both lower extremities ICD Code: I99.8 - Other disorder of circulatory system (2) Claudication in peripheral vascular disease ICD Code: I73.9 - Peripheral vascular disease, unspecified (3) Peripheral arterial disease ICD Code: I73.9 - Peripheral vascular disease, unspecified Status: Acute (4) Hypertension ICD Code: I10 - Hypertension Status: Acute Assessment and Plan 66-year-old man with Peripheral artery disease Ischemia of Lower extremities Claudication peripheral vascular disease Aorta with runoff CTA with finding of right lower extremity with occlusion of the SFA and left lower extremity with reconstitution of the, femoral artery with significant popliteal disease Vascular surgery following and recommends aorto femoral bipass and right fempop bypass. Aspirin and continue with statin Carotid ultrasound shows some some disease, Vascular surgery plan to follow it up outpatient, 2-D echo grossly unremarkable. Pain management accordingly Podiatry following and recommends revascularization first. OR tomorrow with vascular surgery. Hypertension Continue Lasix Diabetes type 2 Hold oral hypoglycemic agents Sliding-scale insulin Hemoglobin A1c 7.8 Thrombocytopenia Likely secondary to liver disease due to previous history of alcohol abuse Monitor platelets 1.2 cm lesion in the liver per aorta run off CTA This appears stable per MRI in 2010 Tobacco abuse Tobacco counseling cessation provided DVT prophylaxis: Bilateral SCDs. heparin for DVT PPx Discharge Planning Plan for surgery tomorrow per vascular surgery Paul Funk MD Mar 11, 2017 11:22
[2017-03-11] MEDS: cloNIDine HCL 0.1 MG TAB PO PRN (16:43)
[2017-03-12] VITALS: BP 133/64; PULSE 72; RESP 18; TEMP 96.9; O2SAT 98
[2017-03-12 06:53] LABS: INTERNATIONAL NORMALIZED RATIO 1.2 RATIO; PROTHROMBIN TIME - PATIENT 11.9 SEC (9.8-11.6)
[2017-03-12 08:00] VITALS: BP 174/77; PULSE 73; RESP 18; TEMP 97.4; O2SAT 100
[2017-03-12] MEDS: INSULIN ASPART SUPPLEMENTAL SCALE SQ SCH ×4 (08:00→21:17)
[2017-03-12] MEDS: HEPARIN SODIUM - SQ 10,000 UNITS/ML VIAL SQ SCH (08:07)
[2017-03-12] MEDS: PRAVASTATIN SOD 20 MG TAB PO SCH (08:09)
[2017-03-12] MEDS: LISINOPRIL 10 MG TAB PO SCH (08:09)
[2017-03-12] MEDS: DOCUSATE SODIUM 50 MG/SENNA 8.6 MG TAB PO SCH (08:09)
[2017-03-12] MEDS: SODIUM CHLORIDE 0.9% FLUSH 10 ML FLUSH IV FLUSH SCH ×2 (08:10→21:00)
[2017-03-12] MEDS: ASPIRIN 325 MG TAB PO SCH (08:10)
--- NOTE | 2017-03-12 10:15 | HHI.PR ---
Subjective Remarks Patient waiting to go to the OR today.He has no new complaints. Objective Vitals Vital Signs Date Time Temp Pulse Resp B/P (MAP) Pulse Ox O2 Delivery O2 Flow Rate FiO2 03/12/17 00:00 96.9 72 18 133/64 (87) 98 03/11/17 20:00 96.8 77 18 107/58 (74) 98 03/11/17 17:52 82 173/81 (111) 03/11/17 16:00 97.6 83 17 172/79 (110) 98 03/11/17 12:00 98.5 79 17 134/66 (88) 100 I/O 03/11/17 03/11/17 03/11/17 03/12/17 03/12/17 03/12/17 07:00 15:00 23:00 07:00 15:00 23:00 Intake Total 250 ml 760 ml 680 ml Balance 250 ml 760 ml 680 ml Intake Oral 250 ml 760 ml 680 ml # Voids 2 3 3 # Bowel Movements 0 0 Result Diagram: 03/09/17 0505 03/09/17 0505 Objective Remarks GENERAL: This is a well-nourished, well-developed patient, in no apparent distress. CARDIOVASCULAR: Regular rate and rhythm without murmurs, gallops, or rubs. RESPIRATORY: Clear to auscultation. Breath sounds equal bilaterally. No wheezes , rales, or rhonchi. GASTROINTESTINAL: Abdomen soft, non-tender, nondistended. MUSCULOSKELETAL: Right second toe appears swollen distally, very boggy, no surrounding induration or erythema.Decreased capillary refill in the toe. Tender to palpation. Plantar left foot has a callous. NEUROLOGICAL: Awake and alert. Normal speech. A/P Problem List: (1) Ischemia of both lower extremities ICD Code: I99.8 - Other disorder of circulatory system (2) Claudication in peripheral vascular disease ICD Code: I73.9 - Peripheral vascular disease, unspecified (3) Peripheral arterial disease ICD Code: I73.9 - Peripheral vascular disease, unspecified Status: Acute (4) Hypertension ICD Code: I10 - Hypertension Status: Acute Assessment and Plan 66-year-old man with Peripheral artery disease Ischemia of Lower extremities Claudication peripheral vascular disease Aorta with runoff CTA with finding of right lower extremity with occlusion of the SFA and left lower extremity with reconstitution of the, femoral artery with significant popliteal disease Vascular surgery following and recommends aorto femoral bipass and right fempop bypass. continue with statin and aspirin Carotid ultrasound shows some some disease, Vascular surgery plan to follow it up outpatient, 2-D echo grossly unremarkable. Pain management accordingly Podiatry following and recommends revascularization first. OR today with vascular surgery. Hypertension Continue Lasix Diabetes type 2 Hold oral hypoglycemic agents Sliding-scale insulin Hemoglobin A1c 7.8 Thrombocytopenia Likely secondary to liver disease due to previous history of alcohol abuse Monitor platelets 1.2 cm lesion in the liver per aorta run off CTA This appears stable per MRI in 2010 Tobacco abuse Tobacco counseling cessation provided DVT prophylaxis: Bilateral SCDs. heparin for DVT PPx Paul Funk MD Mar 12, 2017 10:15
[2017-03-12] MEDS ORDERED: SODIUM BICARBONATE 8.4% INJ 50 MEQ/50 ML SYR ONE (10:21)
[2017-03-12] MEDS ORDERED: fentaNYL CITRATE 250 MCG/5 ML AMP ONE ×2 (10:21→12:32)
[2017-03-12] MEDS ORDERED: HEPARIN SODIUM - IV 10,000 UNITS/10 ML VIAL ONE (10:22)
[2017-03-12] MEDS ORDERED: PROTAMINE SULFATE 50 MG/5 ML VIAL ONE (10:22)
[2017-03-12] MEDS ORDERED: BUPIVACAINE/EPINEPHRINE 0.5% PF 30 ML VIAL ONE (10:22)
[2017-03-12] MEDS ORDERED: ceFAZolin INJ 1,000 MG VIAL ONE ×2 (10:22→15:26)
[2017-03-12] MEDS ORDERED: THROMBIN (TOPICAL) 20,000 UNIT SPRAY KIT ONE (10:28)
[2017-03-12] MEDS ORDERED: THROMBIN (TOPICAL) 5,000 UNIT VIAL ONE (10:28)
[2017-03-12] MEDS ORDERED: GELFOAM SIZE 100 ONE (10:29)
[2017-03-12] MEDS ORDERED: ceFAZolin 2 GM PREMIX 50 ML ONE (11:04)
[2017-03-12] MEDS ORDERED: INSULIN HUMAN REGULAR 1,000 UNITS/10 ML VIAL SQ PRN (11:45)
[2017-03-12] MEDS ORDERED: POVIDONE IODINE 5% (ANTISEPSIS KIT) 4 APPLICATIONS EACH NARE PRN (11:45)
[2017-03-12] MEDS ORDERED: CHLORHEXIDINE GLUCONATE 2 % 1 PACK (2 CLOTHS) TOPICAL PRN (11:45)
[2017-03-12] MEDS ORDERED: SODIUM CHLORID 0.9% 500 ML IV PRN (11:45)
[2017-03-12] MEDS ORDERED: LACTATED RINGER'S 1000 ML IV PRN (11:45)
[2017-03-12] MEDS ORDERED: METOPROLOL TARTRATE 25 MG TAB PO PRN (11:45)
[2017-03-12] MEDS ORDERED: ONDANSETRON HCL 4 MG/2 ML VIAL IV ONE (12:00)
[2017-03-12] MEDS ORDERED: SODIUM CHLORIDE 0.9% 20 ML VIAL IV ONE (12:00)
[2017-03-12] MEDS ORDERED: hydrALAZINE HCL 20 MG/ML VIAL IV ONE (12:00)
[2017-03-12] MEDS ORDERED: ROCURONIUM INJ 50 MG/5 ML SYRINGE IV PUSH ONE (12:00)
[2017-03-12] MEDS ORDERED: PROPOFOL 200 MG/20 ML AMP IV ONE (12:00)
[2017-03-12] MEDS ORDERED: DEXAMETHASONE SOD PHOS 4 MG/ML VIAL IV ONE (12:00)
[2017-03-12] MEDS ORDERED: GLYCOPYRROLATE 1 MG/5 ML SYRINGE IV PUSH ONE (12:00)
[2017-03-12] MEDS ORDERED: PHENYLEPH/NS 1000 MCG/10 ML SYR IV ONE (12:00)
[2017-03-12] MEDS ORDERED: PHENYLEPHRINE HCL 10 MG/ML VIAL IV ONE (12:00)
[2017-03-12] MEDS ORDERED: NEOSTIGMINE 5 MG/5 ML SYRINGE IV PUSH ONE (12:00)
[2017-03-12] MEDS ORDERED: ePHEDrine/NS 25 MG/5 ML SYRINGE IV ONE (12:00)
[2017-03-12] MEDS ORDERED: VECURONIUM BROMIDE 20 MG VIAL IV ONE (12:00)
[2017-03-12] MEDS ORDERED: LIDOCAINE HCL 1% PF 5 ML SYRINGE OTHER ONE (12:00)
[2017-03-12] MEDS ORDERED: HEPARIN SODIUM - SQ 10,000 UNITS/ML VIAL OTHER ONE ×2 (14:26→14:30)
[2017-03-12] MEDS ORDERED: metroNIDAZOLE 500 MG INJ 100 ML IV ONE (15:28)
[2017-03-12] MEDS ORDERED: VANCOMYCIN HCL 1000 MG VIAL ONE (15:28)
[2017-03-12] MEDS ORDERED: HYDROmorphone HCL PF 2 MG/ML VIAL ONE (16:47)
[2017-03-12] MEDS ORDERED: ONDANSETRON HCL 4 MG/2 ML VIAL IV PUSH PRN (17:30)
[2017-03-12] MEDS ORDERED: NALOXONE HCL 0.4 MG/ML AMP IV PUSH PRN (17:30)
[2017-03-12] MEDS ORDERED: SODIUM CHLORIDE 0.9% FLUSH 10 ML FLUSH IV FLUSH PRN (17:30)
[2017-03-12] MEDS ORDERED: Post-op Orders (for Pharmacy) XX ONE (17:30)
[2017-03-12] MEDS ORDERED: *RESP: ALBUTEROL 2.5 MG/3 ML NEB (PRN) PERIprocedural Use ONLY NEB ONE (17:37)
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
[2017-03-12] MEDS ORDERED: *morphine SULFATE 4 MG/ML PERIprocedure ONLY ONE (17:55)
[2017-03-12] MEDS: SODIUM CHLOR 0.9% 1000 ML INJ 1,000 ML IV SCH (17:58)
[2017-03-12] MEDS: PANTOPRAZOLE SODIUM 40 MG VIAL IV PUSH SCH (18:00)
[2017-03-12 18:03] LABS: HEMATOCRIT 34.1 % (39.0-51.0); HEMOGLOBIN 10.9 GM/DL (13.0-17.0)
[2017-03-12] MEDS ORDERED: niCARdipine 25 MG/NS 250 ML Vial2Bag or IV room IV PRN ×2 (18:45)
[2017-03-12] MEDS ORDERED: DO NOT ADM ANY ANTICOAGULANT DRUGS PRN (18:45)
[2017-03-12] MEDS ORDERED: niCARdipine INJ 25 MG in SODIUM CHLOR 0.9% 250 ML INJ 240 ML IV PRN (19:00)
--- NOTE | 2017-03-12 19:48 | PD.CONS ---
HPI Service Critical Care Medicine Consult Requested By Primary Care Physician Jaswant Lara MD History of Present Illness Mr. Warner is a 66-year-old very pleasant -Finnish male who has been admitted for complaints of a painful swollen right second digit. His symptoms were consistent with intermittent claudication, he is been evaluated by Dr. Hunter and underwent popliteal bypass surgery today. Critical-care medicine was consulted for ICU management. Review of Systems Constitutional: DENIES: Diaphoretic episodes, Fatigue, Fever, Weight gain, Weight loss, Chills, Dizziness, Change in appetite, Night Sweats Endocrine: DENIES: Heat/cold intolerance, Polydipsia, Polyuria, Polyphagia Eyes: DENIES: Blurred vision, Diplopia, Eye inflammation, Eye pain, Vision loss , Photosensitivity, Double Vision Ears, nose, mouth, throat: DENIES: Tinnitus, Hearing loss, Vertigo, Nasal discharge, Oral lesions, Throat pain, Hoarseness, Ear Pain, Running Nose, Epistaxis, Sinus Pain, Toothache, Odynophagia Respiratory: DENIES: Apneas, Cough, Snoring, Wheezing, Hemoptysis, Sputum production, Shortness of breath Cardiovascular: DENIES: Chest pain, Palpitations, Syncope, Dyspnea on Exertion , PND, Lower Extremity Edema, Orthopnea, Claudication Gastrointestinal: DENIES: Abdominal pain, Black stools, Bloody stools, Constipation, Diarrhea, Nausea, Vomiting, Difficulty Swallowing, Anorexia Genitourinary: DENIES: Sexual dysfunction, Urinary frequency, Urinary incontinence, Urgency, Hematuria, Dysuria, Nocturia, Penile Discharge, Testicular Pain, Testicular Swelling Musculoskeletal: COMPLAINS OF: Joint pain, Joint Swelling, DENIES: Muscle aches , Stiffness, Back pain, Neck pain Integumentary: COMPLAINS OF: Abnormal pigmentation, DENIES: Nail changes, Pruritus, Rash Hematologic/lymphatic: DENIES: Bruising, Lymphadenopathy Immunologic/allergic: DENIES: Eczema, Urticaria Neurologic: COMPLAINS OF: Abnormal gait, DENIES: Headache, Localized weakness, Paresthesias, Seizures, Speech Problems, Tremor, Poor Balance Psychiatric: DENIES: Anxiety, Confusion, Mood changes, Depression, Hallucinations, Agitation, Suicidal Ideation, Homicidal Ideation, Delusions Past Family Social History Allergies: Coded Allergies: No Known Allergies (Verified Allergy, Unknown, 03/07/17) Past Medical History Hypertension Diabetes type 2, hepatitis C, CVA in 2007 Past Surgical History L GROIN HERNIA REPAIR 1969' Right CEA 2008 BULLET IN BACK OF HEAD/NECK JAW SURGERY 1969' Cataract removal Left knee surgery Reported Medications Reported Meds & Active Scripts Active Glucotrol (Glipizide) 5 Mg Tab 5 Mg PO BID Glucophage XR 24 HR (Metformin HCl) 500 Mg Tab 500 Mg PO BID 30 Days Aspirin 81 Mg Tab 81 Mg PO DAILY Prinivil (Lisinopril) 10 Mg Tab 10 Mg PO DAILY Reported Pravastatin 20 Mg Tab 20 Mg PO DAILY Metformin (Metformin HCl) 500 Mg Tab 500 Mg PO BIDPC Lisinopril 10 Mg Tab 10 Mg PO DAILY Glipizide 5 Mg Tab 5 Mg PO BIDAC Take 30 minutes before a meal Multivitamin (Multivitamins) 1 Tab Tab 1 Tab PO BID Travatan Z (Travoprost) 0.004 % Rufino 1 Drop EACH EYE HS Active Ordered Medications Current Medications Medications (Trade) Dose Ordered Sig/Nina Route PRN Reason Start Time Stop Time Status Last Admin Dose Admin Acetaminophen (Tylenol) 650 mg Q4H PRN PO TEMP > 100.4 03/07/17 16:00 Acetaminophen (Tylenol) 650 mg Q6H PRN PO PAIN SCALE 1 TO 2 03/07/17 16:00 Future Hold Acetaminophen/ Hydrocodone Bitart ([place] 5-325 Mg) 1 tab Q4H PRN PO PAIN SCALE 3 TO 5 03/07/17 16:00 Future Hold Naloxone HCl (Narcan Inj) 0.4 mg UNSCH PRN IV PUSH SEE LABEL COMMENTS 03/07/17 16:00 Magnesium Hydroxide (Milk Of Magnesia Liq) 30 ml Q12H PRN PO Mild constipation 03/07/17 16:00 Sennosides (Senokot) 17.2 mg Q12H PRN PO Moderate constipation 03/07/17 16:00 Bisacodyl (Dulcolax Supp) 10 mg DAILY PRN RECTAL SEVERE CONSITIPATION 03/07/17 16:00 Lactulose (Lactulose Liq) 30 ml DAILY PRN PO SEVERE CONSITIPATION 03/07/17 16:00 Dextrose (D50w (Vial) Inj) 50 ml UNSCH PRN IV PUSH HYPOGLYCEMIA-SEE COMMENTS 03/07/17 16:00 Glucagon (Glucagon Inj) 1 mg UNSCH PRN OTHER HYPOGLYCEMIA-SEE COMMENTS 03/07/17 16:00 Insulin Aspart (NovoLOG SUPPLEMENTAL SCALE) 1 ACHS SLIDING SCALE SQ 03/07/17 17:00 03/11/17 19:20 Aspirin (Aspirin) 325 mg DAILY PO 03/08/17 09:00 03/11/17 08:16 Clonidine (Catapres) 0.1 mg Q6H PRN PO SBP>160, DBP>90 03/07/17 16:00 03/11/17 16:43 Enalaprilat (Vasotec Inj) 2.5 mg Q6H PRN IV PUSH SBP>160, DBP>90 03/07/17 16:00 03/12/17 20:34 Lisinopril (Prinivil) 10 mg DAILY PO 03/08/17 09:00 03/12/17 08:09 Pravastatin Sodium (Pravachol) 20 mg DAILY PO 03/08/17 09:00 03/12/17 08:09 Heparin Sodium (Porcine) (Heparin Inj) 5,000 units Q12H SQ 03/09/17 09:00 Future Hold 03/11/17 19:19 Lactated Ringer's 1,000 ml @ 30 mls/hr Q24H PRN IV SEE LABEL COMMENTS 03/12/17 11:45 03/15/17 11:44 Sodium Chloride 500 ml @ 30 mls/hr [id number] PRN IV SEE LABEL COMMENTS 03/12/17 11:45 03/15/17 11:44 Metoprolol Tartrate (Lopressor) 25 mg STABLE HELPER PRN PO SEE LABEL COMMENTS 03/12/17 11:45 03/15/17 11:44 Povidone Iodine (Betadine 5% Antisepsis Kit) 1 applic STABLE HELPER PRN EACH NARE SEE LABEL COMMENTS 03/12/17 11:45 03/15/17 11:44 Chlorhexidine Gluconate (Chlorhexidine 2% Cloth) 3 pack STABLE HELPER PRN TOPICAL SEE LABEL COMMENTS 03/12/17 11:45 03/15/17 11:44 Insulin Human Regular (NovoLIN R INJ) See Protocol Table ... STABLE HELPER PRN SQ SEE PROTOCOL TABLE 03/12/17 11:45 03/15/17 11:44 Sodium Chloride 1,000 ml @ 150 mls/hr Q6H40M IV 03/12/17 18:00 03/12/17 17:58 Sodium Chloride (NS Flush) 2 ml UNSCH PRN IV FLUSH FLUSH AFTER USING IV ACCESS 03/12/17 17:30 Sodium Chloride (NS Flush) 2 ml BID IV FLUSH 03/12/17 21:00 Ondansetron HCl (Zofran Inj) 4 mg Q6H PRN IV PUSH NAUSEA OR VOMITING 03/12/17 17:30 Pantoprazole Sodium (Protonix Inj) 40 mg Q24H IV PUSH 03/12/17 18:00 03/12/17 18:00 Docusate Sodium (Colace) 100 mg BID PO 03/12/17 21:00 03/12/17 20:34 Cefazolin Sodium 1000 mg/Sodium Chloride 100 ml @ 200 mls/hr Q8H IV 03/12/17 23:00 03/13/17 15:29 Metronidazole 100 ml @ 200 mls/hr Q8H IV 03/13/17 00:00 03/13/17 16:29 Morphine Sulfate (Morphine Inj) 4 mg Q2H PRN IV PUSH PAIN SCALE 1 TO 10 03/12/17 17:30 03/12/17 20:52 Naloxone HCl (Narcan Inj) 0.4 mg UNSCH PRN IV PUSH SEE LABEL COMMENTS 03/12/17 17:30 Enoxaparin Sodium (Lovenox Inj) 40 mg Q24H SQ 03/13/17 16:15 Miscellaneous Information ALL NURSING DEPARTME... UNSCH PRN .XX SEE LABEL COMMENTS 03/12/17 18:45 03/13/17 18:44 Nicardipine HCl 25 mg/Sodium Chloride 250 ml @ 50 mls/hr TITRATE PRN IV Blood pressure management 03/12/17 19:00 03/12/17 17:30 Fentanyl (Duragesic 50 Mcg Patch.72 Hr) 1 patch Q3D T-DERMAL 03/12/17 20:00 03/12/17 20:35 Clopidogrel Bisulfate (Plavix) 75 mg DAILY PO 03/12/17 19:15 Miscellaneous Information 1 Q3D T-DERMAL 03/15/17 20:00 Family History Family history positive for CAD, diabetes Social History Alcohol Use: Denies Tobacco Use: Yes (0.5 CIG) Substance Use: Yes (remote history) Physical Exam Vital Signs Vital Signs Date Time Temp Pulse Resp B/P (MAP) Pulse Ox O2 Delivery O2 Flow Rate FiO2 03/12/17 18:45 97.4 106 15 100 Nasal Cannula 2 119/52 (74) 03/12/17 18:30 109 15 106/54 (71) 100 Nasal Cannula 2 106/53 (70) 03/12/17 18:15 114 16 100 Nasal Cannula 2 134/57 (82) 03/12/17 18:00 111 20 113/56 (75) 100 Nasal Cannula 2 121/59 (79) 03/12/17 17:45 117 24 120/58 (78) 100 Nasal Cannula 2 140/69 (92) 03/12/17 17:30 109 22 195/88 (123) 100 Nasal Cannula 2 191/70 (110) 03/12/17 17:30 109 195/88 03/12/17 17:22 99 20 214/98 (136) 100 03/12/17 17:16 96.7 88 20 219/102 (141) 100 Nasal Cannula 2 03/12/17 08:00 97.4 73 18 174/77 (109) 100 03/12/17 00:00 96.9 72 18 133/64 (87) 98 03/11/17 20:00 96.8 77 18 107/58 (74) 98 Physical Exam GENERAL: A pleasant 66-year-old gentleman in no acute distress. HEENT: Normocephalic. No trauma to the head. Pupils equally reactive. Extraocular muscles intact. NECK: Bilateral carotid pulses and bilateral carotid bruits. CHEST: Bilateral breath sounds, somewhat decreased over both lung duran consistent with some moderate degree of chronic obstructive pulmonary disease. HEART: Regular rhythm. the patient is normotensive. ABDOMEN: Soft. Active bowel sounds. No rebound or guarding. No masses. EXTREMITIES: The patient has palpable femoral pulse on the right and non-palpable femoral pulse on the left. He has very weak dopplerable pulse bilaterally. Also very weak posterior tibial bilaterally by Doppler.Capillary refill is decreased and there is swelling in the right second toe with tip of it being black with dry gangrene. NEUROLOGIC: Alert awake and oriented 3 with normal speech Laboratory Laboratory Tests Test 03/12/17 05:57 03/12/17 15:10 03/12/17 17:32 Prothrombin Time 11.9 Prothromb Time International Ratio 1.2 Blood Gas Puncture Site DRAWN IN OR Blood Gas Patient Temperature 98.6 Blood Gas HCO3 22 Blood Gas Base Excess -2.4 Blood Gas Oxygen Saturation 97 Arterial Blood pH 7.36 Arterial Blood Partial Pressure CO2 40 Arterial Blood Partial Pressure O2 281 Arterial Blood Oxygen Content 13.7 Arterial Blood Carboxyhemoglobin 1.0 Arterial Blood Methemoglobin 1.4 Blood Gas Hemoglobin 9.5 Oxygen Delivery Device OR Blood Gas Ventilator Setting OR Blood Gas Inspired Oxygen 58 Hemoglobin 10.9 Hematocrit 34.1 Result Diagram: 03/12/17 1732 03/09/17 0505 Imaging Last 24 hours Impressions Chest X-Ray 03/12/17 0000 Signed Impressions: Service Date/Time: Sunday, March 12, 2017 17:26 - CONCLUSION: Mild central interstitial prominence. Central line in good position with no pneumothorax Jaswant Orellana MD Septic Shock Reassessment Septic shock perfusion: reassessment completed Assessment and Plan Assessment and Plan Peripheral vascular disease - popliteal bypass surgery - Aspirin - Clopidogrel - Further management per Dr. Hunter Right foot very early signs of ischemic gangrene - Management per podiatry Hypertension - Clonidine - Enalaprilat - Lisinopril - Metoprolol Diabetes mellitus - Insulin Aspart sliding scale Dyslipidemia - Pravastatin DVT GI prophylaxis - Teds SCDs - Subcutaneous heparin - Omeprazole Critical Care: The total critical care time was 35 minutes. Time to perform other separately billable procedures was not included in the critical care time. Hugo Ryan MD Mar 12, 2017 7:48 pm
[2017-03-12 20:00] VITALS: BP 168/62; PULSE 110; RESP 17; TEMP 98; O2SAT 100
[2017-03-12] MEDS: ENALAPRILAT 2.5 MG/2 ML VIAL IV PUSH PRN (20:34)
[2017-03-12] MEDS: DOCUSATE SODIUM 100 MG CAP PO SCH (20:34)
[2017-03-12] MEDS: fentaNYL 50 MCG/HR PATCH T-DERMAL SCH (20:35)
[2017-03-12] MEDS: MORPHINE SULFATE 2 MG/ML INJ IV PUSH PRN (20:52)
[2017-03-12 20:55] VITALS: O2SAT 100
[2017-03-12] MEDS: cloNIDine HCL 0.1 MG TAB PO PRN (22:53)
[2017-03-13] VITALS (13 sets, daily range): BP systolic 102–149; BP diastolic 21–71; PULSE 90–115; RESP 11–27; TEMP 98–99; O2SAT 96–98
[2017-03-13] MEDS: SODIUM CHLOR 0.9% 1000 ML INJ 1,000 ML IV SCH ×3 (00:34→14:00)
[2017-03-13 05:33] LABS: AUTOMATED NEUTROPHIL # 15.9 TH/MM3 (1.8-7.7); BASOPHIL % 0.1 % (0.0-2.0); HEMATOCRIT 34.3 % (39.0-51.0); HEMOGLOBIN 10.9 GM/DL (13.0-17.0); LYMPH % 5.1 % (9.0-44.0); LYMPHOCYTE # 0.9 TH/MM3 (1.0-4.8); MEAN CELL VOLUME 86.9 FL (80.0-100.0); MEAN CORPUSCULAR HEMOGLOBIN 27.7 PG (27.0-34.0); MEAN CORPUSCULAR HGB CONC 31.8 % (32.0-36.0); MEAN PLATELET VOLUME 9.2 FL (7.0-11.0); MONO % 7.5 % (0.0-8.0); MONOCYTE # 1.4 TH/MM3 (0-0.9); NEUT % 87.3 % (16.0-70.0); PLATELET COUNT 114 TH/MM3 (150-450); RED BLOOD COUNT 3.95 MIL/MM3 (4.50-5.90); RED CELL DISTRIBUTION WIDTH 12.4 % (11.6-17.2); WHITE BLOOD COUNT 18.3 TH/MM3 (4.0-11.0)
[2017-03-13 05:55] LABS: BICARBONATE 25.1 MEQ/L (21.0-32.0); CALCIUM 7.5 MG/DL (8.5-10.1); CREATININE 1.11 MG/DL (0.60-1.30)
[2017-03-13] MEDS: INSULIN ASPART SUPPLEMENTAL SCALE SQ SCH ×4 (08:00→20:00)
[2017-03-13] MEDS: metroNIDAZOLE 500 MG INJ 100 ML IV SCH ×2 (08:41→16:35)
[2017-03-13] MEDS: DOCUSATE SODIUM 100 MG CAP PO SCH ×2 (08:41→20:12)
[2017-03-13] MEDS: ASPIRIN 325 MG TAB PO SCH (08:41)
[2017-03-13] MEDS: PRAVASTATIN SOD 20 MG TAB PO SCH (08:42)
[2017-03-13] MEDS: SODIUM CHLORIDE 0.9% FLUSH 10 ML FLUSH IV FLUSH SCH ×2 (08:42→20:12)
[2017-03-13] MEDS: CLOPIDOGREL 75 MG TAB PO SCH (08:42)
[2017-03-13] MEDS: LISINOPRIL 10 MG TAB PO SCH (08:44)
--- NOTE | 2017-03-13 12:09 | MP ---
cc: SHADY AMAYA MD DATE OF SURGERY 03/12/2017 PREOPERATIVE DIAGNOSES 1. 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 2. Occlusion of both superficial femoral arteries. 3. Gangrene of the right second toe. POSTOPERATIVE DIAGNOSES 1. 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 2. Occlusion of both superficial femoral arteries. 3. Gangrene of the right second toe. OPERATIVE PROCEDURE Aortobifemoral bypass and right femoral-popliteal bypass. Popliteal artery endarterectomy SURGEON MD Elsa ANESTHESIA General. ESTIMATED BLOOD LOSS 500 cc. INDICATIONS FOR PROCEDURE This pleasant 67-year-old gentleman presented to the hospital with severe ischemia of both legs right more than left, no palpable pulses, very poor dopplerable pulses and gangrene of the right second toe. The patient is massively hypertensive and also a poorly controlled diabetic. DETAILS OF PROCEDURE The patient is prepped and draped in the usual fashion. First the right groin incision is made and deepened down to the neurovascular sheath, the common femoral, superficial femoral and deep femoral arteries are isolated and retractors placed. Vessel loops placed around each vessel respectively. The patient has a very poor pulse in the right common femoral artery but it is there. The superficial femoral artery is clearly occluded. The left groin is now opened and again common femoral, deep and superficial femoral arteries are isolated and vessel loops placed around each respectively. The superficial femoral artery has actually no flow in it; it is occluded from the top down. The common femoral artery has some blood coming through the profunda but the external iliac above it is completely occluded and this is clearly chronic with very hard material in it. The abdominal incision is now made and through the midline the abdomen is entered, the abdomen explored in quadrants. Except for some diverticulosis, I do not see any other abnormalities. The Bookwalter retractors are positioned and distal aorta exposed, very careful dissection with right-angle and Metzenbaum scissors. The distal aorta and proximal common iliac arteries are very carefully isolated, preserving of course the integrity of the vena cava and of course the internal and common iliac veins which are right there at it. Once vessels are nicely isolated, umbilical tapes are placed around each respectively. It is noted that the right common iliac artery has a pulse in it but it is very weak. On the left side the pulse is stronger but it stops as it enters external iliac artery which is obvious on the CAT scan. So the patient has sort of mixed disease. The aorta is very hard and firm with lot of calcium in it. The tunnels are now made on the right side from the groin up behind the cecum, on the left side from the groin up behind the sigmoid in the retroperitoneum and through these red rubber Robinsons are passed in order to have it track where we are going to pull the graft down later on. The patient is now given 7000 units of heparin and then clamps are applied, angled DeBakey to the common iliac arteries and then a Norman clamp to the aorta. The aorta is opened longitudinally with the 11 blade and Linder scissors. There is a massive amount of arteriosclerotic material in here and this is carefully dissected with [place] dissector and removed. After the aortic endarterectomy is performed, DeBakey clamps are released one at a time. From the right side there is some back-flow. On the left side there is absolutely no flow in the common iliac artery and there is a thick arteriosclerotic and thrombotic material in it. I passed a Gayatri catheter down and of course it goes as far as the external iliac artery and stops but there is nothing else there and actually there is no back-bleeding even from the internal iliac artery upward. On the right side as noted, situation is a little better but there is some back- bleeding but very weak. The Norman clamp is now released and there is a gush of blood downward and this was clamped again. A 22-mm with 11-mm limb Hemashield graft is chosen. This one is washed up and then measured out. The graft is cut under oblique angle and then sewn in with running 3-0 Prolene on SH needle. Once it is completed, the clamps are now placed on the limbs of the graft and the clamps on the common iliacs are released and so is the Norman clamp on the aorta. This reestablishes the blood flow. The small bleeders are controlled with pledgets. The limbs are now pulled through the pre-made tunnels in the retroperitoneal space, down into the groin and then first right and then left anastomosis was created. On the right side the graft is cut under an oblique angle with an 11 blade and the common femoral artery is opened. There is a lot of clot in the right common femoral artery and this seems to be old and new clot combined. I am not sure how it got there. Anyway, the Gayatri balloon catheter is passed distally and all the clot is removed. I did not want some of the clot to flush back and end up in my graft. The same is done proximally and again some clot is obtained but then there is one area where the common iliac must be completely blocked because I could not get all the way to the aorta. The graft is now sewn in a 5-0 Prolene on CC1 needle and then blood flow reestablished. The same is done on the left side. Once both limbs are opened, the patient has bounding posterior tibial pulses on the left but very weak on the right. Decision is made to go ahead with the preplanned fem-pop bypass. An Atrium 8-5 mm graft is chosen, pulled femoral to the popliteal space with a tunneling instrument after the popliteal artery is isolated. Once this is in place the distal anastomosis is attended, the popliteal artery is opened and Gayatri catheter passed distally and proximally. Proximally of course the superficial femoral artery is occluded. Distally there is good back-bleeding. There is partial occlusion of popliteal artery with heavy plaque material and this 1 is dissected in the medial plane with a [place] dissector and removed. The vessel loops are cinched down and then the anastomosis created with running 5-0 Prolene between the Propatent graft and the popliteal artery. Clamps are now released from the popliteal artery and then graft is flushed with heparinized saline and then graft is clamped. Proximal anastomosis is created to the Hemashield graft with running 5-0 Prolene. Once this is completed, blood flow is reestablished to the point the patient has bounding pulses in both of posterior tibial arteries and feet are warm. The area is irrigated with copious amounts of saline, then incisions closed with 0 Vicryl in layers and mp and abdominal incision is closed after abdomen is irrigated with copious amounts of saline with antibiotics using #1 PDS loop and mp. The patient tolerated the procedure well, is taken from the operating room in stable condition. Shady GREGORIO/LEIGH /6:42 PM /11:46 AM MTDPieter
--- NOTE | 2017-03-13 15:41 | PD.CAR.PN ---
CVT Progress Note Subjective/Hospital Course: Referral received Full consult to follow Obdulio Colbert 03/09/17 I reviewed laboratory and diagnostic procedures. This gentleman a vasculopath with severe vascular changes. While the aorta is patent, the origins of both common iliac arteries are significantly stenosed and it is felt this would be probably doable by endovascular stenting. As I go lower down, the left external iliac artery is completely occluded and the left common femoral reconstitutes from some branches around it. On the right side, external iliac is patent but severely stenosed and diseased. I can barely see the common femoral artery here. The SFA is bilaterally occluded and then popliteal artery reconstitutes as a weak vessel with very poor flow. Based on the above findings, in this age group the patient needs a more radical procedure to revascularize him because if we start stenting, I can stent the right side, leaving still external iliac on the left occluded and the patient would at that point need a fem-fem bypass to bring some blood to the left leg. While the right leg is the problem, that would worsen the same. 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 At some point in the future, we can probably go ahead with left fem-pop bypass, but right now I would stick to the diseased side with the gangrenous ulcer which is the right side. Anything less than this for this patient with ischemic pain at rest and ulcer is insufficient and will result in a prolonged course of placing various stents and bypasses until the patient finally loses his leg. In addition, flow limiting factors are below the level of the knee, but I cannot really see very well if all the three vessels are open. I believe there are only two vessels open on each side below the knee, although the blood flow is so faint that it is hard to tell. Once on the table, we may obtain arteriogram to look at this better. At this point, In summary I recommend aortobifemoral bypass and right fem-pop bypass and the patient agrees with the plan. He is a moderate risk patient considering his medical history. Cardiology help is appreciated. As far as carotid disease is concerned patient had the bilateral ultrasound and he has a about 60-70% left carotid stenosis which is currently asymptomatic In face of his peripheral vascular disease I would leave it at that and I will follow the patient now future in the office at which point he'll get a carotid CTA Patient scheduled for aortobifemoral bypass and right femoral-popliteal bypass for Sunday03/10/17 Discussed care with patient at length Scheduled to undergo aortobifemoral and right femoral-popliteal bypass Sunday All the questions answered and risks and benefits explained 03/13/2017 Patient status post aortobifemoral bypass and a right femoropopliteal bypass Abdomen is soft hypoactive bowel sounds Incisions are clean and dry Patient has palpable femoral pulses and strong dopplerable popliteal pulses as well as posterior tibial bilateral and dorsalis pedis on the right Feet are warm Plan Keep n.p.o. but for medication Out of bed Abdominal binder when out of bed and ambulation All things equal patient can transfer to floor tomorrow morning Objective: Vital Signs Date Time Temp Pulse Resp B/P (MAP) Pulse Ox O2 Delivery O2 Flow Rate FiO2 03/13/17 14:00 102 03/13/17 12:00 115 03/13/17 12:00 98.7 101 11 106/53 (70) 97 120/57 (78) 03/13/17 10:00 102 03/13/17 08:00 98.7 115 27 135/61 (85) 97 146/69 (94) 03/13/17 08:00 115 03/13/17 07:31 98 21 03/13/17 07:00 97 Room Air 03/13/17 06:00 105 03/13/17 04:00 108 03/13/17 04:00 98.7 108 14 147/65 (92) 97 145/57 (86) 03/13/17 02:00 108 03/13/17 00:00 112 03/13/17 00:00 98.0 112 11 149/71 (97) 96 147/57 (87) 03/12/17 20:55 100 2.00 03/12/17 20:00 98.0 110 17 168/62 (97) 100 03/12/17 18:45 97.4 106 15 100 Nasal Cannula 2 119/52 (74) 03/12/17 18:30 109 15 106/54 (71) 100 Nasal Cannula 2 106/53 (70) 03/12/17 18:15 114 16 100 Nasal Cannula 2 134/57 (82) 03/12/17 18:00 111 20 113/56 (75) 100 Nasal Cannula 2 121/59 (79) 03/12/17 17:45 117 24 120/58 (78) 100 Nasal Cannula 2 140/69 (92) 03/12/17 17:30 109 22 195/88 (123) 100 Nasal Cannula 2 191/70 (110) 03/12/17 17:30 109 195/88 03/12/17 17:22 99 20 214/98 (136) 100 03/12/17 17:16 96.7 88 20 219/102 (141) 100 Nasal Cannula 2 Labs: Laboratory Tests Test 03/13/17 05:00 White Blood Count 18.3 TH/MM3 (4.0-11.0) Red Blood Count 3.95 MIL/MM3 (4.50-5.90) Hemoglobin 10.9 GM/DL (13.0-17.0) Hematocrit 34.3 % (39.0-51.0) Mean Corpuscular Volume 86.9 FL (80.0-100.0) Mean Corpuscular Hemoglobin 27.7 PG (27.0-34.0) Mean Corpuscular Hemoglobin Concent 31.8 % (32.0-36.0) Red Cell Distribution Width 12.4 % (11.6-17.2) Platelet Count 114 TH/MM3 (150-450) Mean Platelet Volume 9.2 FL (7.0-11.0) Neutrophils (%) (Auto) 87.3 % (16.0-70.0) Lymphocytes (%) (Auto) 5.1 % (9.0-44.0) Monocytes (%) (Auto) 7.5 % (0.0-8.0) Eosinophils (%) (Auto) 0.0 % (0.0-4.0) Basophils (%) (Auto) 0.1 % (0.0-2.0) Neutrophils # (Auto) 15.9 TH/MM3 (1.8-7.7) Lymphocytes # (Auto) 0.9 TH/MM3 (1.0-4.8) Monocytes # (Auto) 1.4 TH/MM3 (0-0.9) Eosinophils # (Auto) 0.0 TH/MM3 (0-0.4) Basophils # (Auto) 0.0 TH/MM3 (0-0.2) CBC Comment DIFF FINAL Differential Comment Blood Urea Nitrogen 15 MG/DL (7-18) Creatinine 1.11 MG/DL (0.60-1.30) Random Glucose 301 MG/DL (74-106) Calcium Level 7.5 MG/DL (8.5-10.1) Sodium Level 139 MEQ/L (136-145) Potassium Level 5.2 MEQ/L (3.5-5.1) Chloride Level 107 MEQ/L (98-107) Carbon Dioxide Level 25.1 MEQ/L (21.0-32.0) Anion Gap 7 MEQ/L (5-15) Estimat Glomerular Filtration Rate 80 ML/MIN (>89) Result Diagram: 03/13/17 0500 03/13/17 0500 Gregory Hunter MD Mar 13, 2017 15:41
--- NOTE | 2017-03-13 16:25 | HHI.CCPN ---
Subjective Remarks/Hospital Course Mr. Warner is a 66-year-old very pleasant -[place] male who has been admitted for complaints of a painful swollen right second digit. His symptoms were consistent with intermittent claudication, he is been evaluated by Dr. Hunter and underwent popliteal bypass surgery today. Critical-care medicine was consulted for ICU management. 03/13: Breathing comfortably. Glucose control problematic, adjust coverage. Abdomen quiet but soft. Objective Vital Signs Date Time Temp Pulse Resp B/P (MAP) Pulse Ox O2 Delivery O2 Flow Rate FiO2 03/13/17 16:00 113 03/13/17 16:00 99.0 18 102/56 (71) 98 110/21 (50) 03/13/17 07:31 21 03/13/17 07:00 Room Air 03/12/17 20:55 2.00 Intake and Output 03/13/17 03/13/17 03/14/17 08:00 16:00 00:00 Intake Total 2099 ml Output Total 950 ml Balance 1149 ml Result Diagram: 03/13/17 0500 03/13/17 0500 Imaging Last 24 hours Impressions Chest X-Ray 03/12/17 0000 Signed Impressions: Service Date/Time: Sunday, March 12, 2017 17:26 - CONCLUSION: Mild central interstitial prominence. Central line in good position with no pneumothorax Jaswant Orellana MD Objective Remarks GENERAL: A pleasant 66-year-old gentleman, calm. HEENT: Normocephalic. Pupils equally reactive. CHEST: Bilateral breath sounds, clear. Distant sounds. HEART: Regular rhythm. NL S1S2, no JVD. ABDOMEN: Soft. Quiet. No rebound or guarding. NEUROLOGIC: Alert awake and oriented 3 with normal speech. Wiggles fingers and toes. A/P Assessment and Plan Peripheral vascular disease - [id number] - Right femoral - popliteal bypass surgery - Aspirin - Clopidogrel - Further management per Dr. Hunter Right toe very early signs of ischemic gangrene - Management per podiatry Hypertension - Clonidine - Enalaprilat - Lisinopril - Metoprolol Diabetes mellitus - Insulin Aspart sliding scale - Adjust scale. Dyslipidemia - Pravastatin DVT GI prophylaxis - Subcutaneous heparin - Omeprazole Overall impression: Stable hemodynamic and respiratory function. Will sign off. Richard Grajeda MD Mar 13, 2017 16:25
[2017-03-13] MEDS ORDERED: DEXTROSE 50% IN WATER 50 ML VIAL(D50) IV PUSH PRN (16:30)
[2017-03-13] MEDS ORDERED: GLUCAGON 1 MG/ML VIAL OTHER PRN (16:30)
[2017-03-13 16:34] LABS: HEMATOCRIT 30.4 % (39.0-51.0); HEMOGLOBIN 9.8 GM/DL (13.0-17.0); MEAN CELL VOLUME 86.4 FL (80.0-100.0); MEAN CORPUSCULAR HEMOGLOBIN 27.8 PG (27.0-34.0); MEAN CORPUSCULAR HGB CONC 32.1 % (32.0-36.0); PLATELET COUNT 103 TH/MM3 (150-450); RED BLOOD COUNT 3.52 MIL/MM3 (4.50-5.90); RED CELL DISTRIBUTION WIDTH 12.4 % (11.6-17.2); WHITE BLOOD COUNT 17.1 TH/MM3 (4.0-11.0)
[2017-03-13] MEDS: PANTOPRAZOLE SODIUM 40 MG VIAL IV PUSH SCH (16:34)
[2017-03-13] MEDS: ENOXAPARIN SODIUM 40 MG/0.4 ML SYRINGE SQ SCH (16:35)
[2017-03-13] MEDS: INSULIN DETEMIR 100 UNITS/ML VIAL SQ SCH (20:12)
--- NOTE | 2017-03-13 20:49 | HHI.PR ---
Subjective Remarks Patient seen bedside this evening. Reports no pain to right lower extremity. Denies nausea vomiting fevers or chills. Nurse present bedside states she was able to Doppler pedal pulse. Objective Vital Signs Date Time Temp Pulse Resp B/P (MAP) Pulse Ox O2 Delivery O2 Flow Rate FiO2 03/13/17 18:00 97 03/13/17 16:00 113 03/13/17 16:00 99.0 111 18 102/56 (71) 98 110/21 (50) 03/13/17 14:00 102 03/13/17 12:00 115 03/13/17 12:00 98.7 101 11 106/53 (70) 97 120/57 (78) 03/13/17 10:00 102 03/13/17 08:00 98.7 115 27 135/61 (85) 97 146/69 (94) 03/13/17 08:00 115 03/13/17 07:31 98 21 03/13/17 07:00 97 Room Air 03/13/17 06:00 105 03/13/17 04:00 108 03/13/17 04:00 98.7 108 14 147/65 (92) 97 145/57 (86) 03/13/17 02:00 108 03/13/17 00:00 112 03/13/17 00:00 98.0 112 11 149/71 (97) 96 147/57 (87) 03/12/17 20:55 100 2.00 I/O 03/12/17 03/12/17 03/12/17 03/13/17 03/13/17 03/13/17 07:00 15:00 23:00 07:00 15:00 23:00 Intake Total 680 ml 5109 ml 2099 ml 1100 ml 300 ml Output Total 1200 ml 950 ml 400 ml Balance 680 ml 3909 ml 1149 ml 1100 ml -100 ml Intake Oral 680 ml 0 ml 240 ml 100 ml IV Total 109 ml 1859 ml 1100 ml 200 ml Other 5000 ml Output Urine Total 700 ml 950 ml 400 ml Estimated Blood Loss 500 ml # Voids 3 # Bowel Movements 0 0 Result Diagram: 03/13/17 1615 03/13/17 0500 Imaging Last Impressions Chest X-Ray 03/12/17 0000 Signed Impressions: Service Date/Time: Sunday, March 12, 2017 17:26 - CONCLUSION: Mild central interstitial prominence. Central line in good position with no pneumothorax Jaswant Orellana MD Carotid Artery Ultrasound 03/07/17 0000 Signed Impressions: Service Date/Time: Tuesday, March 07, 2017 22:24 - CONCLUSION: Slightly elevated peak systolic velocity of the left internal coronary suggestive of 50-69%% stenosis. Moderate calcified atherosclerotic plaque is noted within the carotid bulb and internal carotid artery. Taj Gallegos MD Aorta w/Runoff CTA 03/07/17 0000 Signed Impressions: Service Date/Time: Tuesday, March 07, 2017 11:14 - CONCLUSION: 1. 2 lesions involving segment 4 the liver. Further evaluation is suggested utilizing MRI. 2. Hepatic steatosis. 3. 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 The right common iliac artery shows moderate stenosis. 4. Right lower extremity shows occlusion of the SFA with reconstitution of the popliteal artery. Runoff to the foot is via the posterior tibial artery and diseased anterior tibial artery. 5. Left lower extremity shows reconstitution of the common femoral artery with significant popliteal disease. Runoff is via a posterior tibial artery and diseased anterior tibial artery. Raul Ley Jr., MD Aorta CTA 03/07/17 0000 Signed Impressions: Service Date/Time: Tuesday, March 07, 2017 11:14 - CONCLUSION: 1. No flow-limiting stenosis, aneurysm or dissection involving the thoracic aorta. Proximal arch vessels are patent. 2. Diffuse atherosclerotic disease involving the infrarenal abdominal aorta without significant aneurysm or focal flow-limiting aortic stenosis. 3. 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 4. Diffusely decreased hepatic attenuation consistent with hepatic steatosis with 2 small ill-defined sub 1.5 cm lesions in segment 4 of the liver. Distribution favors focal fatty change although nonspecific. Report from MRI examination of 2010 appears to describe similar lesions although images are not available for review at this time. 5. Ancillary findings include cholelithiasis and small fat containing anterior abdominal periumbilical hernia. Romie Anaya MD Other Results Laboratory Tests Test 03/12/17 05:57 03/12/17 15:10 03/12/17 17:32 03/13/17 05:00 Prothrombin Time 11.9 SEC Prothromb Time International Ratio 1.2 RATIO Blood Gas Puncture Site DRAWN IN OR Blood Gas Patient Temperature 98.6 Blood Gas HCO3 22 mmol/L Blood Gas Base Excess -2.4 mmol/L Blood Gas Oxygen Saturation 97 % Arterial Blood pH 7.36 Arterial Blood Partial Pressure CO2 40 mmHg Arterial Blood Partial Pressure O2 281 mmHg Arterial Blood Oxygen Content 13.7 Vol % Arterial Blood Carboxyhemoglobin 1.0 % Arterial Blood Methemoglobin 1.4 % Blood Gas Hemoglobin 9.5 G/DL Oxygen Delivery Device OR Blood Gas Ventilator Setting OR Blood Gas Inspired Oxygen 58 % Hemoglobin 10.9 GM/DL 10.9 GM/DL Hematocrit 34.1 % 34.3 % White Blood Count 18.3 TH/MM3 Red Blood Count 3.95 MIL/MM3 Mean Corpuscular Volume 86.9 FL Mean Corpuscular Hemoglobin 27.7 PG Mean Corpuscular Hemoglobin Concent 31.8 % Red Cell Distribution Width 12.4 % Platelet Count 114 TH/MM3 Mean Platelet Volume 9.2 FL Neutrophils (%) (Auto) 87.3 % Lymphocytes (%) (Auto) 5.1 % Monocytes (%) (Auto) 7.5 % Eosinophils (%) (Auto) 0.0 % Basophils (%) (Auto) 0.1 % Neutrophils # (Auto) 15.9 TH/MM3 Lymphocytes # (Auto) 0.9 TH/MM3 Monocytes # (Auto) 1.4 TH/MM3 Eosinophils # (Auto) 0.0 TH/MM3 Basophils # (Auto) 0.0 TH/MM3 CBC Comment DIFF FINAL Differential Comment Blood Urea Nitrogen 15 MG/DL Creatinine 1.11 MG/DL Random Glucose 301 MG/DL Calcium Level 7.5 MG/DL Sodium Level 139 MEQ/L Potassium Level 5.2 MEQ/L Chloride Level 107 MEQ/L Carbon Dioxide Level 25.1 MEQ/L Anion Gap 7 MEQ/L Estimat Glomerular Filtration Rate 80 ML/MIN Test 03/13/17 16:15 White Blood Count 17.1 TH/MM3 Red Blood Count 3.52 MIL/MM3 Hemoglobin 9.8 GM/DL Hematocrit 30.4 % Mean Corpuscular Volume 86.4 FL Mean Corpuscular Hemoglobin 27.8 PG Mean Corpuscular Hemoglobin Concent 32.1 % Red Cell Distribution Width 12.4 % Platelet Count 103 TH/MM3 Mean Platelet Volume 9.0 FL Objective Remarks Lower extremity physical exam: Vascular: Dorsalis pedis nonpalpable, posterior tibial nonpalpable. Capillary refill time within normal limits to digits 5 bilateral foot. Edema not present right foot and ankle. Neuro: Gross sensation intact to bilateral lower extremity. Pinpoint sensation decreased. No hyperalgesia noted to bilateral lower extremity. Dermatology: Normal temperature and turgor to bilateral lower extremity. Right second digit with mild fluctuance noted to proximal nail fold with no ischemia noted. No open lesions to right second digit. No crepitus noted to right second digit. Musculoskeletal: No tenderness to palpation to right foot. Medications and IVs Current Medications Medications (Trade) Dose Ordered Sig/Nina Route Start Time Stop Time Status Last Admin (Tylenol) 650 mg Q4H PRN PO 03/07/17 16:00 (Tylenol) 650 mg Q6H PRN PO 03/07/17 16:00 Future Hold ([place] 5-325 Mg) 1 tab Q4H PRN PO 03/07/17 16:00 Future Hold (Milk Of Magnesia Liq) 30 ml Q12H PRN PO 03/07/17 16:00 (Senokot) 17.2 mg Q12H PRN PO 03/07/17 16:00 (Dulcolax Supp) 10 mg DAILY PRN RECTAL 03/07/17 16:00 (Lactulose Liq) 30 ml DAILY PRN PO 03/07/17 16:00 (Aspirin) 325 mg DAILY PO 03/08/17 09:00 03/13/17 08:41 (Catapres) 0.1 mg Q6H PRN PO 03/07/17 16:00 03/12/17 22:53 (Vasotec Inj) 2.5 mg Q6H PRN IV PUSH 03/07/17 16:00 03/12/17 20:34 (Prinivil) 10 mg DAILY PO 03/08/17 09:00 03/12/17 08:09 (Pravachol) 20 mg DAILY PO 03/08/17 09:00 03/13/17 08:42 (Heparin Inj) 5,000 units Q12H SQ 03/09/17 09:00 Future Hold 03/11/17 19:19 Lactated Ringer's 1,000 ml @ 30 mls/hr Q24H PRN IV 03/12/17 11:45 03/15/17 11:44 Sodium Chloride 500 ml @ 30 mls/hr [id number] PRN IV 03/12/17 11:45 2/8/18 11:44 (Lopressor) 25 mg [employer] PRN PO 03/12/17 11:45 03/15/17 11:44 (Betadine 5% Antisepsis Kit) 1 applic [employer]TE[employer] PRN EACH NARE 03/12/17 11:45 03/15/17 11:44 (Chlorhexidine 2% Cloth) 3 pack [employer]TE[employer] WORKER PRN TOPICAL 03/12/17 11:45 03/15/17 11:44 (NovoLIN R INJ) See Protocol Table ... [employer] MAINTENA[employer]CE WORKER PRN SQ 03/12/17 11:45 03/15/17 11:44 Sodium Chloride 1,000 ml @ 80 mls/hr [id number] IV 03/12/17 18:00 03/13/17 14:00 (NS Flush) 2 ml UNSCH PRN IV FLUSH 03/12/17 17:30 (NS Flush) 2 ml BID IV FLUSH 03/12/17 21:00 03/13/17 20:12 (Zofran Inj) 4 mg Q6H PRN IV PUSH 03/12/17 17:30 (Protonix Inj) 40 mg Q24H IV PUSH 03/12/17 18:00 03/13/17 16:34 (Colace) 100 mg BID PO 03/12/17 21:00 03/13/17 20:12 (Morphine Inj) 4 mg Q2H PRN IV PUSH 03/12/17 17:30 03/12/17 20:52 (Narcan Inj) 0.4 mg UNSCH PRN IV PUSH 03/12/17 17:30 (Lovenox Inj) 40 mg Q24H SQ 03/13/17 16:15 03/13/17 16:35 Nicardipine HCl 25 mg/Sodium Chloride 250 ml @ 50 mls/hr TITRATE PRN IV 03/12/17 19:00 03/12/17 17:30 (Duragesic 50 Mcg Patch.72 Hr) 1 patch Q3D T-DERMAL 03/12/17 20:00 03/12/17 20:35 (Plavix) 75 mg DAILY PO 03/12/17 19:15 03/13/17 08:42 Miscellaneous Information 1 Q3D T-DERMAL 03/15/17 20:00 (Levemir Inj) 8 units HS SQ 03/13/17 21:00 03/13/17 20:12 (D50w (Vial) Inj) 50 ml UNSCH PRN IV PUSH 03/13/17 16:30 (Glucagon Inj) 1 mg UNSCH PRN OTHER 03/13/17 16:30 (NovoLOG SUPPLEMENTAL SCALE) 1 Q4HR SQ 03/13/17 16:30 03/13/17 16:30 Assessment and Plan Assessment and Plan 66-year-old male with right second digit concern for ischemia/necrosis Patient evaluated and examined with all questions answered Mild fluctuance noted to the distal right second digit however I feel that with vascular's excellent intervention digit should do well At this time concern for necrosis or ischemia to right second digit Will obtain right foot x-ray to evaluate right second digit No surgical intervention anticipated from podiatry Discussed Betadine to right second digit Patient to follow up with Dr. Floyd/Dr. Mir as outpatient within 1 week of discharge Shani Mir DPM Mar 13, 2017 20:49
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
[2017-03-14] VITALS (13 sets, daily range): BP systolic 123–176; BP diastolic 54–82; PULSE 100–120; RESP 10–32; TEMP 98.2–99.1; O2SAT 96–99
[2017-03-14] MEDS: SODIUM CHLOR 0.9% 1000 ML INJ 1,000 ML IV SCH ×3 (01:02→21:22)
[2017-03-14] MEDS: INSULIN ASPART SUPPLEMENTAL SCALE SQ SCH ×6 (04:00→21:21)
[2017-03-14] MEDS: MORPHINE SULFATE 2 MG/ML INJ IV PUSH PRN (04:07)
[2017-03-14] MEDS: CLOPIDOGREL 75 MG TAB PO SCH (09:18)
[2017-03-14] MEDS: LISINOPRIL 10 MG TAB PO SCH (09:18)
[2017-03-14] MEDS: ASPIRIN 325 MG TAB PO SCH (09:18)
[2017-03-14] MEDS: PRAVASTATIN SOD 20 MG TAB PO SCH (09:18)
[2017-03-14] MEDS: DOCUSATE SODIUM 100 MG CAP PO SCH ×2 (09:18→21:00)
[2017-03-14] MEDS: ACETAMINOPHEN 325 MG TAB PO PRN (09:25)
[2017-03-14] MEDS: SODIUM CHLORIDE 0.9% FLUSH 10 ML FLUSH IV FLUSH SCH ×2 (10:31→21:21)
[2017-03-14 10:45] LABS: AUTOMATED NEUTROPHIL # 16.2 TH/MM3 (1.8-7.7); BASOPHIL % 0.2 % (0.0-2.0); HEMATOCRIT 29.6 % (39.0-51.0); HEMOGLOBIN 9.4 GM/DL (13.0-17.0); LYMPHOCYTE # 1.6 TH/MM3 (1.0-4.8); MEAN CELL VOLUME 86.5 FL (80.0-100.0); MEAN CORPUSCULAR HEMOGLOBIN 27.6 PG (27.0-34.0); MEAN CORPUSCULAR HGB CONC 31.9 % (32.0-36.0); MEAN PLATELET VOLUME 9.2 FL (7.0-11.0); MONO % 10.4 % (0.0-8.0); MONOCYTE # 2.1 TH/MM3 (0-0.9); NEUT % 81.4 % (16.0-70.0); PLATELET COUNT 99 TH/MM3 (150-450); RED BLOOD COUNT 3.43 MIL/MM3 (4.50-5.90); WHITE BLOOD COUNT 19.9 TH/MM3 (4.0-11.0)
[2017-03-14 11:18] LABS: BICARBONATE 23.8 MEQ/L (21.0-32.0); CALCIUM 7.5 MG/DL (8.5-10.1); CREATININE 1.09 MG/DL (0.60-1.30)
--- NOTE | 2017-03-14 11:21 | HHI.PR ---
Subjective Remarks Follow-up peripheral vascular disease, hypertension, diabetes. The patient is having pain in his abdomen near the surgical site. No other complaints at this time. Objective Vitals Vital Signs Date Time Temp Pulse Resp B/P (MAP) Pulse Ox O2 Delivery O2 Flow Rate FiO2 03/14/17 10:00 113 03/14/17 08:00 98.3 105 20 129/56 (80) 96 132/62 (85) 03/14/17 08:00 105 03/14/17 07:54 99 21 03/14/17 07:00 96 Room Air 03/14/17 06:00 104 03/14/17 04:00 118 03/14/17 04:00 98.2 118 32 176/82 (113) 97 150/64 (92) 03/14/17 02:00 104 03/14/17 00:00 100 03/14/17 00:00 98.5 100 10 144/66 (92) 97 130/54 (79) 03/13/17 22:00 90 03/13/17 20:00 112 03/13/17 20:00 98.7 112 24 97 148/62 (90) 03/13/17 19:00 99 Room Air 03/13/17 18:00 97 03/13/17 16:00 113 03/13/17 16:00 99.0 111 18 102/56 (71) 98 110/21 (50) 03/13/17 14:00 102 03/13/17 12:00 115 03/13/17 12:00 98.7 101 11 106/53 (70) 97 120/57 (78) I/O 03/13/17 03/13/17 03/13/17 03/14/17 03/14/17 03/14/17 07:00 15:00 23:00 07:00 15:00 23:00 Intake Total 2099 ml 1100 ml 300 ml 852 ml Output Total 950 ml 400 ml 500 ml Balance 1149 ml 1100 ml -100 ml 352 ml Intake Oral 240 ml 100 ml 50 ml IV Total 1859 ml 1100 ml 200 ml 802 ml Output Urine Total 950 ml 400 ml 500 ml # Bowel Movements 0 0 0 Result Diagram: 03/14/17 1015 03/13/17 0500 Imaging Last Impressions Foot X-Ray 03/13/17 0000 Signed Impressions: Service Date/Time: Monday, March 13, 2017 21:10 - CONCLUSION: Unremarkable exam for patient's age. Josue Owusu MD Chest X-Ray 03/12/17 0000 Signed Impressions: Service Date/Time: Sunday, March 12, 2017 17:26 - CONCLUSION: Mild central interstitial prominence. Central line in good position with no pneumothorax Jaswant Orellana MD Carotid Artery Ultrasound 03/07/17 0000 Signed Impressions: Service Date/Time: Tuesday, March 07, 2017 22:24 - CONCLUSION: Slightly elevated peak systolic velocity of the left internal coronary suggestive of 50-69%% stenosis. Moderate calcified atherosclerotic plaque is noted within the carotid bulb and internal carotid artery. Taj Gallegos MD Aorta w/Runoff CTA 03/07/17 0000 Signed Impressions: Service Date/Time: Tuesday, March 07, 2017 11:14 - CONCLUSION: 1. 2 lesions involving segment 4 the liver. Further evaluation is suggested utilizing MRI. 2. Hepatic steatosis. 3. 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 The right common iliac artery shows moderate stenosis. 4. Right lower extremity shows occlusion of the SFA with reconstitution of the popliteal artery. Runoff to the foot is via the posterior tibial artery and diseased anterior tibial artery. 5. Left lower extremity shows reconstitution of the common femoral artery with significant popliteal disease. Runoff is via a posterior tibial artery and diseased anterior tibial artery. Raul Ley Jr., MD Aorta CTA 03/07/17 0000 Signed Impressions: Service Date/Time: Tuesday, March 07, 2017 11:14 - CONCLUSION: 1. No flow-limiting stenosis, aneurysm or dissection involving the thoracic aorta. Proximal arch vessels are patent. 2. Diffuse atherosclerotic disease involving the infrarenal abdominal aorta without significant aneurysm or focal flow-limiting aortic stenosis. 3. 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 4. Diffusely decreased hepatic attenuation consistent with hepatic steatosis with 2 small ill-defined sub 1.5 cm lesions in segment 4 of the liver. Distribution favors focal fatty change although nonspecific. Report from MRI examination of 2010 appears to describe similar lesions although images are not available for review at this time. 5. Ancillary findings include cholelithiasis and small fat containing anterior abdominal periumbilical hernia. Romie Anaya MD Objective Remarks General: No acute distress. Sitting up in a chair. Appears uncomfortable. Heart: Regular rate and rhythm. No murmur. Lungs: Clear to auscultation bilaterally. No wheezes, rales, or rhonchi. Breathing is nonlabored. Abdomen: Soft, tender to palpation diffusely. Surgical wounds bandaged. Extremities: No lower extremity edema. Psych: Alert and oriented. Procedures 03/12/17 aortobifemoral bypass and right femoropopliteal bypass Urinary Catheter: Yes Vascular Central Line Catheter: No A/P Problem List: (1) Ischemia of both lower extremities ICD Code: I99.8 - Other disorder of circulatory system (2) Claudication in peripheral vascular disease ICD Code: I73.9 - Peripheral vascular disease, unspecified (3) Peripheral arterial disease ICD Code: I73.9 - Peripheral vascular disease, unspecified Status: Acute (4) Hypertension ICD Code: I10 - Hypertension Status: Acute Assessment and Plan 1. Peripheral arterial disease, lower extremity ischemia, claudication: Status post aortobifemoral bypass and femoral-popliteal bypass. Management per vascular surgery. Continue pain control. Appreciate podiatry recommendations as well. Continue Plavix, aspirin, statin. 2. Hypertension: Continue lisinopril. Clonidine, Vasotec as needed. 3. Diabetes mellitus, type II: Oral hypoglycemic agents on hold. Continue Levemir. Monitor Accu-Cheks and cover with sliding scale insulin. Hemoglobin A1c 7.8. 4. Thrombocytopenia: Likely secondary to liver disease due to previous history of alcohol abuse. Monitor labs. 5. 1.2 cm liver lesion on CTA: Appears stable compared to MRI in 2010. 6. Tobacco abuse: Counseled quit smoking. 7. GI prophylaxis: Protonix. 8. DVT prophylaxis: SCDs, Lovenox. Dejuan Ornelas MD Mar 14, 2017 11:21
--- NOTE | 2017-03-14 13:47 | PD.CAR.PN ---
CVT Progress Note Subjective/Hospital Course: Referral received Full consult to follow Obdulio Colbert 03/09/17 I reviewed laboratory and diagnostic procedures. This gentleman a vasculopath with severe vascular changes. While the aorta is patent, the origins of both common iliac arteries are significantly stenosed and it is felt this would be probably doable by endovascular stenting. As I go lower down, the left external iliac artery is completely occluded and the left common femoral reconstitutes from some branches around it. On the right side, external iliac is patent but severely stenosed and diseased. I can barely see the common femoral artery here. The SFA is bilaterally occluded and then popliteal artery reconstitutes as a weak vessel with very poor flow. Based on the above findings, in this age group the patient needs a more radical procedure to revascularize him because if we start stenting, I can stent the right side, leaving still external iliac on the left occluded and the patient would at that point need a fem-fem bypass to bring some blood to the left leg. While the right leg is the problem, that would worsen the same. 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 At some point in the future, we can probably go ahead with left fem-pop bypass, but right now I would stick to the diseased side with the gangrenous ulcer which is the right side. Anything less than this for this patient with ischemic pain at rest and ulcer is insufficient and will result in a prolonged course of placing various stents and bypasses until the patient finally loses his leg. In addition, flow limiting factors are below the level of the knee, but I cannot really see very well if all the three vessels are open. I believe there are only two vessels open on each side below the knee, although the blood flow is so faint that it is hard to tell. Once on the table, we may obtain arteriogram to look at this better. At this point, In summary I recommend aortobifemoral bypass and right fem-pop bypass and the patient agrees with the plan. He is a moderate risk patient considering his medical history. Cardiology help is appreciated. As far as carotid disease is concerned patient had the bilateral ultrasound and he has a about 60-70% left carotid stenosis which is currently asymptomatic In face of his peripheral vascular disease I would leave it at that and I will follow the patient now future in the office at which point he'll get a carotid CTA Patient scheduled for aortobifemoral bypass and right femoral-popliteal bypass for Sunday03/10/17 Discussed care with patient at length Scheduled to undergo aortobifemoral and right femoral-popliteal bypass Sunday All the questions answered and risks and benefits explained 03/13/2017 Patient status post aortobifemoral bypass and a right femoropopliteal bypass Abdomen is soft hypoactive bowel sounds Incisions are clean and dry Patient has palpable femoral pulses and strong dopplerable popliteal pulses as well as posterior tibial bilateral and dorsalis pedis on the right Feet are warm Plan Keep n.p.o. but for medication Out of bed Abdominal binder when out of bed and ambulation All things equal patient can transfer to floor tomorrow morning 03/15/2016 Patient doing well status post aortobifemoral bypass Incisions are clean and dry and patient has nice warm feet with palpable proximal and dopplerable distal pulses bilateral Abdomen still slightly distended patient clearly has postoperative ileus as expected due to complex nature of intra-abdominal operation and the retroperitoneal dissection Patients with retroperitoneal surgery like aortic aneurysm repairs do usually have a longer period of recovery from paralytic ileus Patient refused NG tube so we will just going to watch him carefully Plan Transfer to floor ambulate aggressively with binder Keep n.p.o. till passes gas Objective: Vital Signs Date Time Temp Pulse Resp B/P (MAP) Pulse Ox O2 Delivery O2 Flow Rate FiO2 03/14/17 12:00 98.6 102 20 123/58 (79) 96 Arterial Line 03/14/17 12:00 106 03/14/17 10:00 113 03/14/17 08:00 98.3 105 20 129/56 (80) 96 132/62 (85) 03/14/17 08:00 105 03/14/17 07:54 99 21 03/14/17 07:00 96 Room Air 03/14/17 06:00 104 03/14/17 04:00 118 03/14/17 04:00 98.2 118 32 176/82 (113) 97 150/64 (92) 03/14/17 02:00 104 03/14/17 00:00 100 03/14/17 00:00 98.5 100 10 144/66 (92) 97 130/54 (79) 03/13/17 22:00 90 03/13/17 20:00 112 03/13/17 20:00 98.7 112 24 97 148/62 (90) 03/13/17 19:00 99 Room Air 03/13/17 18:00 97 03/13/17 16:00 113 03/13/17 16:00 99.0 111 18 102/56 (71) 98 110/21 (50) 03/13/17 14:00 102 Labs: Laboratory Tests Test 03/14/17 10:15 White Blood Count 19.9 TH/MM3 (4.0-11.0) Red Blood Count 3.43 MIL/MM3 (4.50-5.90) Hemoglobin 9.4 GM/DL (13.0-17.0) Hematocrit 29.6 % (39.0-51.0) Mean Corpuscular Volume 86.5 FL (80.0-100.0) Mean Corpuscular Hemoglobin 27.6 PG (27.0-34.0) Mean Corpuscular Hemoglobin Concent 31.9 % (32.0-36.0) Red Cell Distribution Width 13.0 % (11.6-17.2) Platelet Count 99 TH/MM3 (150-450) Mean Platelet Volume 9.2 FL (7.0-11.0) Neutrophils (%) (Auto) 81.4 % (16.0-70.0) Lymphocytes (%) (Auto) 8.0 % (9.0-44.0) Monocytes (%) (Auto) 10.4 % (0.0-8.0) Eosinophils (%) (Auto) 0.0 % (0.0-4.0) Basophils (%) (Auto) 0.2 % (0.0-2.0) Neutrophils # (Auto) 16.2 TH/MM3 (1.8-7.7) Lymphocytes # (Auto) 1.6 TH/MM3 (1.0-4.8) Monocytes # (Auto) 2.1 TH/MM3 (0-0.9) Eosinophils # (Auto) 0.0 TH/MM3 (0-0.4) Basophils # (Auto) 0.0 TH/MM3 (0-0.2) CBC Comment AUTO DIFF Differential Comment AUTO DIFF CONFIRMED Platelet Estimate LOW (NORMAL) Platelet Morphology Comment NORMAL (NORMAL) Blood Urea Nitrogen 27 MG/DL (7-18) Creatinine 1.09 MG/DL (0.60-1.30) Random Glucose 231 MG/DL (74-106) Calcium Level 7.5 MG/DL (8.5-10.1) Sodium Level 140 MEQ/L (136-145) Potassium Level 4.5 MEQ/L (3.5-5.1) Chloride Level 109 MEQ/L (98-107) Carbon Dioxide Level 23.8 MEQ/L (21.0-32.0) Anion Gap 7 MEQ/L (5-15) Estimat Glomerular Filtration Rate 82 ML/MIN (>89) Result Diagram: 03/14/17 1015 03/14/17 1015 Gregory Hunter MD Mar 14, 2017 13:47
[2017-03-14] MEDS ORDERED: DOCUSATE SODIUM 100 MG CAP PO SCH (14:00)
[2017-03-14] MEDS ORDERED: LACTULOSE SYRUP 20 GM/30 ML CUP PO ONE (14:00)
[2017-03-14] MEDS: ENOXAPARIN SODIUM 40 MG/0.4 ML SYRINGE SQ SCH (16:18)
[2017-03-14] MEDS: PANTOPRAZOLE SODIUM 40 MG VIAL IV PUSH SCH (17:20)
[2017-03-14] MEDS: ENALAPRILAT 2.5 MG/2 ML VIAL IV PUSH PRN (17:20)
[2017-03-14] MEDS: INSULIN DETEMIR 100 UNITS/ML VIAL SQ SCH (21:21)
[2017-03-15] VITALS: BP 146/56; PULSE 110; RESP 14; TEMP 99.6; O2SAT 96
[2017-03-15] MEDS: INSULIN ASPART SUPPLEMENTAL SCALE SQ SCH ×7 (00:05→23:50)
[2017-03-15] MEDS: SODIUM CHLOR 0.9% 1000 ML INJ 1,000 ML IV SCH ×2 (02:02→08:22)
[2017-03-15 04:00] VITALS: BP 186/81; PULSE 118; RESP 15; TEMP 100; O2SAT 97
[2017-03-15] MEDS: ENALAPRILAT 2.5 MG/2 ML VIAL IV PUSH PRN (05:00)
[2017-03-15] MEDS: ACETAMINOPHEN 325 MG TAB PO PRN ×2 (05:00→15:17)
[2017-03-15 06:15] VITALS: BP 152/73
[2017-03-15 06:34] LABS: AUTOMATED NEUTROPHIL # 14.7 TH/MM3 (1.8-7.7); BASOPHIL % 0.2 % (0.0-2.0); HEMATOCRIT 26.1 % (39.0-51.0); HEMOGLOBIN 8.3 GM/DL (13.0-17.0); LYMPHOCYTE # 1.8 TH/MM3 (1.0-4.8); MEAN CELL VOLUME 86.8 FL (80.0-100.0); MEAN CORPUSCULAR HEMOGLOBIN 27.5 PG (27.0-34.0); MEAN CORPUSCULAR HGB CONC 31.7 % (32.0-36.0); MEAN PLATELET VOLUME 9.7 FL (7.0-11.0); MONO % 8.7 % (0.0-8.0); MONOCYTE # 1.6 TH/MM3 (0-0.9); NEUT % 81.1 % (16.0-70.0); PLATELET COUNT 87 TH/MM3 (150-450); RED CELL DISTRIBUTION WIDTH 12.5 % (11.6-17.2); WHITE BLOOD COUNT 18.1 TH/MM3 (4.0-11.0)
[2017-03-15 06:58] LABS: BICARBONATE 26.7 MEQ/L (21.0-32.0); CALCIUM 8.1 MG/DL (8.5-10.1); CREATININE 0.81 MG/DL (0.60-1.30)
[2017-03-15 08:00] VITALS: BP 134/66; PULSE 100; RESP 18; TEMP 98.6; O2SAT 98
[2017-03-15] MEDS: LISINOPRIL 10 MG TAB PO SCH (08:17)
[2017-03-15] MEDS: PRAVASTATIN SOD 20 MG TAB PO SCH (08:17)
[2017-03-15] MEDS: ASPIRIN 325 MG TAB PO SCH (08:17)
[2017-03-15] MEDS: CLOPIDOGREL 75 MG TAB PO SCH (08:17)
[2017-03-15] MEDS: DOCUSATE SODIUM 100 MG CAP PO SCH ×2 (08:18→19:45)
[2017-03-15] MEDS: SODIUM CHLORIDE 0.9% FLUSH 10 ML FLUSH IV FLUSH SCH ×2 (08:20→19:46)
--- NOTE | 2017-03-15 09:11 | HHI.PR ---
Subjective Remarks Follow up ileus, PVD. Patient states that he feels much better today. Abdominal pain has improved. No nausea/vomiting this morning. Multiple small bowel movements overnight. Objective Vitals Vital Signs Date Time Temp Pulse Resp B/P (MAP) Pulse Ox O2 Delivery O2 Flow Rate FiO2 03/15/17 08:28 Room Air 03/15/17 06:15 152/73 (99) 03/15/17 04:00 100.0 118 15 186/81 (116) 97 03/15/17 00:00 99.6 110 14 146/56 (86) 96 03/14/17 23:00 97 Room Air 03/14/17 21:10 99.1 106 14 138/60 (86) 97 03/14/17 18:00 113 03/14/17 16:00 114 03/14/17 16:00 98.9 120 20 143/68 (93) 96 03/14/17 14:00 115 03/14/17 12:00 98.6 102 20 123/58 (79) 96 Arterial Line 03/14/17 12:00 106 03/14/17 10:00 113 I/O 03/14/17 03/14/17 03/14/17 03/15/17 03/15/17 03/15/17 07:00 15:00 23:00 07:00 15:00 23:00 Intake Total 852 ml 1775 ml 902 ml Output Total 500 ml 900 ml 700 ml Balance 352 ml 875 ml 202 ml Intake Oral 50 ml 925 ml 200 ml IV Total 802 ml 850 ml 702 ml Output Urine Total 500 ml 900 ml 700 ml # Bowel Movements 0 6 Result Diagram: 03/15/17 0428 03/15/17 0428 Imaging Last Impressions Foot X-Ray 03/13/17 0000 Signed Impressions: Service Date/Time: Monday, March 13, 2017 21:10 - CONCLUSION: Unremarkable exam for patient's age. Josue Owusu MD Chest X-Ray 03/12/17 0000 Signed Impressions: Service Date/Time: Sunday, March 12, 2017 17:26 - CONCLUSION: Mild central interstitial prominence. Central line in good position with no pneumothorax Jaswant Orellana MD Carotid Artery Ultrasound 03/07/17 0000 Signed Impressions: Service Date/Time: Tuesday, March 07, 2017 22:24 - CONCLUSION: Slightly elevated peak systolic velocity of the left internal coronary suggestive of 50-69%% stenosis. Moderate calcified atherosclerotic plaque is noted within the carotid bulb and internal carotid artery. Taj Gallegos MD Aorta w/Runoff CTA 03/07/17 0000 Signed Impressions: Service Date/Time: Tuesday, March 07, 2017 11:14 - CONCLUSION: 1. 2 lesions involving segment 4 the liver. Further evaluation is suggested utilizing MRI. 2. Hepatic steatosis. 3. 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 The right common iliac artery shows moderate stenosis. 4. Right lower extremity shows occlusion of the SFA with reconstitution of the popliteal artery. Runoff to the foot is via the posterior tibial artery and diseased anterior tibial artery. 5. Left lower extremity shows reconstitution of the common femoral artery with significant popliteal disease. Runoff is via a posterior tibial artery and diseased anterior tibial artery. Raul Ley Jr., MD Aorta CTA 03/07/17 0000 Signed Impressions: Service Date/Time: Tuesday, March 07, 2017 11:14 - CONCLUSION: 1. No flow-limiting stenosis, aneurysm or dissection involving the thoracic aorta. Proximal arch vessels are patent. 2. Diffuse atherosclerotic disease involving the infrarenal abdominal aorta without significant aneurysm or focal flow-limiting aortic stenosis. 3. 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 4. Diffusely decreased hepatic attenuation consistent with hepatic steatosis with 2 small ill-defined sub 1.5 cm lesions in segment 4 of the liver. Distribution favors focal fatty change although nonspecific. Report from MRI examination of 2011 appears to describe similar lesions although images are not available for review at this time. 5. Ancillary findings include cholelithiasis and small fat containing anterior abdominal periumbilical hernia. Romie Anaya MD Objective Remarks General: No acute distress. Heart: Regular rate and rhythm. No murmur. Lungs: Clear to auscultation bilaterally. No wheezes, rales, or rhonchi. Breathing is nonlabored. Abdomen: Soft, tender to palpation diffusely. Surgical wounds bandaged. +bowel sounds Extremities: No lower extremity edema. SCDs. Psych: Alert and oriented. Procedures 03/12/17 aortobifemoral bypass and right femoropopliteal bypass Urinary Catheter: Yes Assessment to: Remove (if OK with surgery) Pulido insert reason: Surgical/Invasive Proced Vascular Central Line Catheter: No A/P Problem List: (1) Ischemia of both lower extremities ICD Code: I99.8 - Other disorder of circulatory system (2) Claudication in peripheral vascular disease ICD Code: I73.9 - Peripheral vascular disease, unspecified (3) Peripheral arterial disease ICD Code: I73.9 - Peripheral vascular disease, unspecified Status: Acute (4) Hypertension ICD Code: I10 - Hypertension Status: Acute Assessment and Plan 1. Peripheral arterial disease, lower extremity ischemia, claudication: Status post aortobifemoral bypass and femoral-popliteal bypass. Management per vascular surgery. Continue pain control. Appreciate podiatry recommendations as well. Continue Plavix, aspirin, statin. 2. Hypertension: Continue lisinopril. Clonidine, Vasotec as needed. 3. Diabetes mellitus, type II: Oral hypoglycemic agents on hold. Continue Levemir. Monitor Accu-Cheks and cover with sliding scale insulin. Hemoglobin A1c 7.8. 4. Thrombocytopenia: Likely secondary to liver disease due to previous history of alcohol abuse. Patient is on Aspirin and Plavix. Platelets are trending down. Monitor labs. Consider hematology consultation. 5. 1.2 cm liver lesion on CTA: Appears stable compared to MRI in 2011. 6. Tobacco abuse: Counseled quit smoking. 7. GI prophylaxis: Protonix. 8. Postoperative ileus: Improving. 9. DVT prophylaxis: SCDs, Lovenox. Dejuan Ornelas MD Mar 15, 2017 09:11
[2017-03-15 09:15] LABS: BANDS 8 % (0-6); LYMPHOCYTES 3 % (9-44); MONOCYTES 8 % (0-8); NEUTROPHIL # MANUAL DIFF 16.1 TH/MM3 (1.8-7.7); POLYS (SEG NEUTROPHILS) 81 % (16-70)
[2017-03-15 12:00] VITALS: BP 130/70; PULSE 82; RESP 17; TEMP 97.6; O2SAT 97
--- NOTE | 2017-03-15 13:58 | PD.CAR.PN ---
CVT Progress Note Subjective/Hospital Course: Referral received Full consult to follow Obdulio Colbert 03/09/17 I reviewed laboratory and diagnostic procedures. This gentleman a vasculopath with severe vascular changes. While the aorta is patent, the origins of both common iliac arteries are significantly stenosed and it is felt this would be probably doable by endovascular stenting. As I go lower down, the left external iliac artery is completely occluded and the left common femoral reconstitutes from some branches around it. On the right side, external iliac is patent but severely stenosed and diseased. I can barely see the common femoral artery here. The SFA is bilaterally occluded and then popliteal artery reconstitutes as a weak vessel with very poor flow. Based on the above findings, in this age group the patient needs a more radical procedure to revascularize him because if we start stenting, I can stent the right side, leaving still external iliac on the left occluded and the patient would at that point need a fem-fem bypass to bring some blood to the left leg. While the right leg is the problem, that would worsen the same. 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 At some point in the future, we can probably go ahead with left fem-pop bypass, but right now I would stick to the diseased side with the gangrenous ulcer which is the right side. Anything less than this for this patient with ischemic pain at rest and ulcer is insufficient and will result in a prolonged course of placing various stents and bypasses until the patient finally loses his leg. In addition, flow limiting factors are below the level of the knee, but I cannot really see very well if all the three vessels are open. I believe there are only two vessels open on each side below the knee, although the blood flow is so faint that it is hard to tell. Once on the table, we may obtain arteriogram to look at this better. At this point, In summary I recommend aortobifemoral bypass and right fem-pop bypass and the patient agrees with the plan. He is a moderate risk patient considering his medical history. Cardiology help is appreciated. As far as carotid disease is concerned patient had the bilateral ultrasound and he has a about 60-70% left carotid stenosis which is currently asymptomatic In face of his peripheral vascular disease I would leave it at that and I will follow the patient now future in the office at which point he'll get a carotid CTA Patient scheduled for aortobifemoral bypass and right femoral-popliteal bypass for Sunday03/10/17 Discussed care with patient at length Scheduled to undergo aortobifemoral and right femoral-popliteal bypass Sunday All the questions answered and risks and benefits explained 03/13/2017 Patient status post aortobifemoral bypass and a right femoropopliteal bypass Abdomen is soft hypoactive bowel sounds Incisions are clean and dry Patient has palpable femoral pulses and strong dopplerable popliteal pulses as well as posterior tibial bilateral and dorsalis pedis on the right Feet are warm Plan Keep n.p.o. but for medication Out of bed Abdominal binder when out of bed and ambulation All things equal patient can transfer to floor tomorrow morning 03/15/2016 Patient doing well status post aortobifemoral bypass Incisions are clean and dry and patient has nice warm feet with palpable proximal and dopplerable distal pulses bilateral Abdomen still slightly distended patient clearly has postoperative ileus as expected due to complex nature of intra-abdominal operation and the retroperitoneal dissection Patients with retroperitoneal surgery like aortic aneurysm repairs do usually have a longer period of recovery from paralytic ileus Patient refused NG tube so we will just going to watch him carefully Plan Transfer to floor ambulate aggressively with binder Keep n.p.o. till passes [id number] 03/15/2017 Patient is doing well at this time Incisions are clean and dry Excellent proximal and distal pulses in feet are warm Abdomen is soft with few bowel sounds and patient had a bowel movement but is passing very little gas We will keep on clear liquids or at most advanced to full liquids and then hold off till patient's GI function completely returns, for retroperitoneal aortic surgery will be related with prolonged ileus and most instances DC Pulido Patient really needs to ambulate more and be out of bed Objective: Vital Signs Date Time Temp Pulse Resp B/P (MAP) Pulse Ox O2 Delivery O2 Flow Rate FiO2 03/15/17 12:00 97.6 82 17 130/70 (90) 97 03/15/17 08:28 Room Air 03/15/17 08:00 98.6 100 18 134/66 (88) 98 03/15/17 06:15 152/73 (99) 03/15/17 04:00 100.0 118 15 186/81 (116) 97 03/15/17 00:00 99.6 110 14 146/56 (86) 96 03/14/17 23:00 97 Room Air 03/14/17 21:10 99.1 106 14 138/60 (86) 97 03/14/17 18:00 113 03/14/17 16:00 114 03/14/17 16:00 98.9 120 20 143/68 (93) 96 03/14/17 14:00 115 Labs: Laboratory Tests Test 03/15/17 04:28 White Blood Count 18.1 TH/MM3 (4.0-11.0) Red Blood Count 3.00 MIL/MM3 (4.50-5.90) Hemoglobin 8.3 GM/DL (13.0-17.0) Hematocrit 26.1 % (39.0-51.0) Mean Corpuscular Volume 86.8 FL (80.0-100.0) Mean Corpuscular Hemoglobin 27.5 PG (27.0-34.0) Mean Corpuscular Hemoglobin Concent 31.7 % (32.0-36.0) Red Cell Distribution Width 12.5 % (11.6-17.2) Platelet Count 87 TH/MM3 (150-450) Mean Platelet Volume 9.7 FL (7.0-11.0) Neutrophils (%) (Auto) 81.1 % (16.0-70.0) Lymphocytes (%) (Auto) 10.0 % (9.0-44.0) Monocytes (%) (Auto) 8.7 % (0.0-8.0) Eosinophils (%) (Auto) 0.0 % (0.0-4.0) Basophils (%) (Auto) 0.2 % (0.0-2.0) Neutrophils # (Auto) 14.7 TH/MM3 (1.8-7.7) Lymphocytes # (Auto) 1.8 TH/MM3 (1.0-4.8) Monocytes # (Auto) 1.6 TH/MM3 (0-0.9) Eosinophils # (Auto) 0.0 TH/MM3 (0-0.4) Basophils # (Auto) 0.0 TH/MM3 (0-0.2) CBC Comment AUTO DIFF Differential Total Cells Counted 100 Neutrophils % (Manual) 81 % (16-70) Band Neutrophils % 8 % (0-6) Lymphocytes % 3 % (9-44) Monocytes % 8 % (0-8) Neutrophils # (Manual) 16.1 TH/MM3 (1.8-7.7) Differential Comment FINAL DIFF MANUAL Platelet Estimate LOW (NORMAL) Platelet Morphology Comment NORMAL (NORMAL) Blood Urea Nitrogen 20 MG/DL (7-18) Creatinine 0.81 MG/DL (0.60-1.30) Random Glucose 135 MG/DL (74-106) Calcium Level 8.1 MG/DL (8.5-10.1) Sodium Level 140 MEQ/L (136-145) Potassium Level 4.1 MEQ/L (3.5-5.1) Chloride Level 107 MEQ/L (98-107) Carbon Dioxide Level 26.7 MEQ/L (21.0-32.0) Anion Gap 6 MEQ/L (5-15) Estimat Glomerular Filtration Rate 116 ML/MIN (>89) Result Diagram: 03/15/17 0428 03/15/17 0428 Gregory Hunter MD Mar 15, 2017 13:58
[2017-03-15] MEDS: PANTOPRAZOLE SODIUM 40 MG VIAL IV PUSH SCH (15:17)
[2017-03-15] MEDS: ENOXAPARIN SODIUM 40 MG/0.4 ML SYRINGE SQ SCH (15:18)
[2017-03-15] MEDS: fentaNYL 50 MCG/HR PATCH T-DERMAL SCH (19:46)
[2017-03-15] MEDS: INSULIN DETEMIR 100 UNITS/ML VIAL SQ SCH (19:46)
[2017-03-15 20:00] VITALS: BP 128/60; PULSE 101; RESP 16; TEMP 100; O2SAT 98
[2017-03-15] MEDS ORDERED: REMOVE OLD DURAGESIC (FENTANYL) PATCH T-DERMAL SCH (20:00)
[2017-03-16] VITALS: BP 140/69; PULSE 101; RESP 15; TEMP 99.3; O2SAT 99
[2017-03-16 04:00] VITALS: BP 139/67; PULSE 101; RESP 15; TEMP 100.4; O2SAT 94
[2017-03-16] MEDS: INSULIN ASPART SUPPLEMENTAL SCALE SQ SCH ×5 (04:00→20:00)
[2017-03-16 08:00] VITALS: BP 155/72; PULSE 104; RESP 16; TEMP 100.3; O2SAT 97
[2017-03-16] MEDS: DOCUSATE SODIUM 100 MG CAP PO SCH ×2 (08:30→20:53)
[2017-03-16] MEDS: CLOPIDOGREL 75 MG TAB PO SCH (08:30)
[2017-03-16] MEDS: ASPIRIN 325 MG TAB PO SCH (08:31)
[2017-03-16] MEDS: PRAVASTATIN SOD 20 MG TAB PO SCH (08:31)
[2017-03-16] MEDS: SODIUM CHLORIDE 0.9% FLUSH 10 ML FLUSH IV FLUSH SCH ×2 (08:31→20:54)
[2017-03-16] MEDS: LISINOPRIL 10 MG TAB PO SCH (08:31)
--- NOTE | 2017-03-16 10:10 | HHI.PR ---
Subjective Remarks Follow up ileus, PVD. The patient had low-grade fever overnight. No dyspnea, chest pain, nausea, vomiting. Objective Vitals Vital Signs Date Time Temp Pulse Resp B/P (MAP) Pulse Ox O2 Delivery O2 Flow Rate FiO2 03/16/17 08:00 100.3 104 16 155/72 (99) 97 03/16/17 04:00 100.4 101 15 139/67 (91) 94 03/16/17 00:00 99.3 101 15 140/69 (92) 99 03/15/17 20:00 100.0 101 16 128/60 (82) 98 03/15/17 12:00 97.6 82 17 130/70 (90) 97 I/O 03/15/17 03/15/17 03/15/17 03/16/17 03/16/17 03/16/17 07:00 15:00 23:00 07:00 15:00 23:00 Intake Total 902 ml 500 ml 600 ml Output Total 700 ml 500 ml Balance 202 ml 0 ml 600 ml Intake Oral 200 ml 500 ml 600 ml IV Total 702 ml Output Urine Total 700 ml 500 ml # Voids 3 1 # Bowel Movements 2 1 Result Diagram: 03/15/17 0428 03/15/17 0428 Imaging Last Impressions Foot X-Ray 03/13/17 0000 Signed Impressions: Service Date/Time: Monday, March 13, 2017 21:10 - CONCLUSION: Unremarkable exam for patient's age. Josue Owusu MD Chest X-Ray 03/12/17 0000 Signed Impressions: Service Date/Time: Sunday, March 12, 2017 17:26 - CONCLUSION: Mild central interstitial prominence. Central line in good position with no pneumothorax Jaswant Orellana MD Carotid Artery Ultrasound 03/07/17 0000 Signed Impressions: Service Date/Time: Tuesday, March 07, 2017 22:24 - CONCLUSION: Slightly elevated peak systolic velocity of the left internal coronary suggestive of 50-69%% stenosis. Moderate calcified atherosclerotic plaque is noted within the carotid bulb and internal carotid artery. Taj Gallegos MD Aorta w/Runoff CTA 03/07/17 0000 Signed Impressions: Service Date/Time: Tuesday, March 07, 2017 11:14 - CONCLUSION: 1. 2 lesions involving segment 4 the liver. Further evaluation is suggested utilizing MRI. 2. Hepatic steatosis. 3. 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 The right common iliac artery shows moderate stenosis. 4. Right lower extremity shows occlusion of the SFA with reconstitution of the popliteal artery. Runoff to the foot is via the posterior tibial artery and diseased anterior tibial artery. 5. Left lower extremity shows reconstitution of the common femoral artery with significant popliteal disease. Runoff is via a posterior tibial artery and diseased anterior tibial artery. Raul Ley Jr., MD Aorta CTA 03/07/17 0000 Signed Impressions: Service Date/Time: Tuesday, March 07, 2017 11:14 - CONCLUSION: 1. No flow-limiting stenosis, aneurysm or dissection involving the thoracic aorta. Proximal arch vessels are patent. 2. Diffuse atherosclerotic disease involving the infrarenal abdominal aorta without significant aneurysm or focal flow-limiting aortic stenosis. 3. 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 4. Diffusely decreased hepatic attenuation consistent with hepatic steatosis with 2 small ill-defined sub 1.5 cm lesions in segment 4 of the liver. Distribution favors focal fatty change although nonspecific. Report from MRI examination of 2010 appears to describe similar lesions although images are not available for review at this time. 5. Ancillary findings include cholelithiasis and small fat containing anterior abdominal periumbilical hernia. Romie Anaya MD Objective Remarks General: No acute distress. Heart: Regular rate and rhythm. No murmur. Lungs: Clear to auscultation bilaterally. No wheezes, rales, or rhonchi. Breathing is nonlabored. Abdomen: Soft, tender to palpation diffusely. Surgical wounds bandaged. +bowel sounds Extremities: No lower extremity edema. SCDs. Psych: Alert and oriented. Procedures 03/12/17 aortobifemoral bypass and right femoropopliteal bypass Urinary Catheter: No Vascular Central Line Catheter: No A/P Problem List: (1) Ischemia of both lower extremities ICD Code: I99.8 - Other disorder of circulatory system (2) Claudication in peripheral vascular disease ICD Code: I73.9 - Peripheral vascular disease, unspecified (3) Peripheral arterial disease ICD Code: I73.9 - Peripheral vascular disease, unspecified Status: Acute (4) Hypertension ICD Code: I10 - Hypertension Status: Acute Assessment and Plan 1. Peripheral arterial disease, lower extremity ischemia, claudication: Status post aortobifemoral bypass and femoral-popliteal bypass. Management per vascular surgery. Continue pain control. Appreciate podiatry recommendations as well. Continue Plavix, aspirin, statin. 2. Hypertension: Continue lisinopril. Clonidine, Vasotec as needed. 3. Diabetes mellitus, type II: Oral hypoglycemic agents on hold. Continue Levemir. Monitor Accu-Cheks and cover with sliding scale insulin. Hemoglobin A1c 7.8. 4. Thrombocytopenia: Likely secondary to liver disease due to previous history of alcohol abuse. Patient is on Aspirin and Plavix. Platelets are trending down. Monitor labs. Consider hematology consultation. 5. 1.2 cm liver lesion on CTA: Appears stable compared to MRI in 2011. 6. Tobacco abuse: Counseled quit smoking. 7. GI prophylaxis: Protonix. 8. Postoperative ileus: Improving. 9. DVT prophylaxis: SCDs, Lovenox. 10. Low-grade fever: Check CBC, UA. Dejuan Ornelas MD Mar 16, 2017 10:10
[2017-03-16 12:00] VITALS: BP 147/65; PULSE 103; RESP 17; TEMP 98.4; O2SAT 99
[2017-03-16 13:29] LABS: BASOPHIL % 0.3 % (0.0-2.0); EOSINOPHIL # 0.1 TH/MM3 (0-0.4); HEMATOCRIT 24.8 % (39.0-51.0); HEMOGLOBIN 8.1 GM/DL (13.0-17.0); LYMPH % 21.5 % (9.0-44.0); LYMPHOCYTE # 2.6 TH/MM3 (1.0-4.8); MEAN CELL VOLUME 87.4 FL (80.0-100.0); MEAN CORPUSCULAR HEMOGLOBIN 28.5 PG (27.0-34.0); MEAN CORPUSCULAR HGB CONC 32.6 % (32.0-36.0); MONO % 10.9 % (0.0-8.0); MONOCYTE # 1.3 TH/MM3 (0-0.9); NEUT % 66.3 % (16.0-70.0); PLATELET COUNT 106 TH/MM3 (150-450); RED BLOOD COUNT 2.83 MIL/MM3 (4.50-5.90); RED CELL DISTRIBUTION WIDTH 12.3 % (11.6-17.2); WHITE BLOOD COUNT 12.1 TH/MM3 (4.0-11.0)
--- NOTE | 2017-03-16 14:01 | PD.CAR.PN ---
CVT Progress Note Subjective/Hospital Course: Referral received Full consult to follow Obdulio Colbert 03/09/17 I reviewed laboratory and diagnostic procedures. This gentleman a vasculopath with severe vascular changes. While the aorta is patent, the origins of both common iliac arteries are significantly stenosed and it is felt this would be probably doable by endovascular stenting. As I go lower down, the left external iliac artery is completely occluded and the left common femoral reconstitutes from some branches around it. On the right side, external iliac is patent but severely stenosed and diseased. I can barely see the common femoral artery here. The SFA is bilaterally occluded and then popliteal artery reconstitutes as a weak vessel with very poor flow. Based on the above findings, in this age group the patient needs a more radical procedure to revascularize him because if we start stenting, I can stent the right side, leaving still external iliac on the left occluded and the patient would at that point need a fem-fem bypass to bring some blood to the left leg. While the right leg is the problem, that would worsen the same. 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 At some point in the future, we can probably go ahead with left fem-pop bypass, but right now I would stick to the diseased side with the gangrenous ulcer which is the right side. Anything less than this for this patient with ischemic pain at rest and ulcer is insufficient and will result in a prolonged course of placing various stents and bypasses until the patient finally loses his leg. In addition, flow limiting factors are below the level of the knee, but I cannot really see very well if all the three vessels are open. I believe there are only two vessels open on each side below the knee, although the blood flow is so faint that it is hard to tell. Once on the table, we may obtain arteriogram to look at this better. At this point, In summary I recommend aortobifemoral bypass and right fem-pop bypass and the patient agrees with the plan. He is a moderate risk patient considering his medical history. Cardiology help is appreciated. As far as carotid disease is concerned patient had the bilateral ultrasound and he has a about 60-70% left carotid stenosis which is currently asymptomatic In face of his peripheral vascular disease I would leave it at that and I will follow the patient now future in the office at which point he'll get a carotid CTA Patient scheduled for aortobifemoral bypass and right femoral-popliteal bypass for Sunday03/10/17 Discussed care with patient at length Scheduled to undergo aortobifemoral and right femoral-popliteal bypass Sunday All the questions answered and risks and benefits explained 03/13/2017 Patient status post aortobifemoral bypass and a right femoropopliteal bypass Abdomen is soft hypoactive bowel sounds Incisions are clean and dry Patient has palpable femoral pulses and strong dopplerable popliteal pulses as well as posterior tibial bilateral and dorsalis pedis on the right Feet are warm Plan Keep n.p.o. but for medication Out of bed Abdominal binder when out of bed and ambulation All things equal patient can transfer to floor tomorrow morning 03/15/2016 Patient doing well status post aortobifemoral bypass Incisions are clean and dry and patient has nice warm feet with palpable proximal and dopplerable distal pulses bilateral Abdomen still slightly distended patient clearly has postoperative ileus as expected due to complex nature of intra-abdominal operation and the retroperitoneal dissection Patients with retroperitoneal surgery like aortic aneurysm repairs do usually have a longer period of recovery from paralytic ileus Patient refused NG tube so we will just going to watch him carefully Plan Transfer to floor ambulate aggressively with binder Keep n.p.o. till passes [id number] 03/15/2017 Patient is doing well at this time Incisions are clean and dry Excellent proximal and distal pulses in feet are warm Abdomen is soft with few bowel sounds and patient had a bowel movement but is passing very little gas We will keep on clear liquids or at most advanced to full liquids and then hold off till patient's GI function completely returns, for retroperitoneal aortic surgery will be related with prolonged ileus and most instances DC Pulido Patient really needs to ambulate more and be out of bed 03/16/2017 Incisions are clean and dry Abdomen soft active bowel sounds status post aortobifemoral bypass Patient tolerating full liquids well Advance diet tomorrow and probably patient can go home Sunday Shower daily get incisions wet soap and water Objective: Vital Signs Date Time Temp Pulse Resp B/P (MAP) Pulse Ox O2 Delivery O2 Flow Rate FiO2 03/16/17 12:00 98.4 103 17 147/65 (92) 99 03/16/17 08:00 100.3 104 16 155/72 (99) 97 03/16/17 04:00 100.4 101 15 139/67 (91) 94 03/16/17 00:00 99.3 101 15 140/69 (92) 99 03/15/17 20:00 100.0 101 16 128/60 (82) 98 Labs: Laboratory Tests Test 03/16/17 13:17 White Blood Count 12.1 TH/MM3 (4.0-11.0) Red Blood Count 2.83 MIL/MM3 (4.50-5.90) Hemoglobin 8.1 GM/DL (13.0-17.0) Hematocrit 24.8 % (39.0-51.0) Mean Corpuscular Volume 87.4 FL (80.0-100.0) Mean Corpuscular Hemoglobin 28.5 PG (27.0-34.0) Mean Corpuscular Hemoglobin Concent 32.6 % (32.0-36.0) Red Cell Distribution Width 12.3 % (11.6-17.2) Platelet Count 106 TH/MM3 (150-450) Mean Platelet Volume 9.0 FL (7.0-11.0) Neutrophils (%) (Auto) 66.3 % (16.0-70.0) Lymphocytes (%) (Auto) 21.5 % (9.0-44.0) Monocytes (%) (Auto) 10.9 % (0.0-8.0) Eosinophils (%) (Auto) 1.0 % (0.0-4.0) Basophils (%) (Auto) 0.3 % (0.0-2.0) Neutrophils # (Auto) 8.0 TH/MM3 (1.8-7.7) Lymphocytes # (Auto) 2.6 TH/MM3 (1.0-4.8) Monocytes # (Auto) 1.3 TH/MM3 (0-0.9) Eosinophils # (Auto) 0.1 TH/MM3 (0-0.4) Basophils # (Auto) 0.0 TH/MM3 (0-0.2) CBC Comment DIFF FINAL Differential Comment Result Diagram: 03/16/17 1317 03/15/17 0428 Gregory Hunter MD Mar 16, 2017 14:01
[2017-03-16] MEDS: SODIUM CHLOR 0.9% 1000 ML INJ 1,000 ML IV SCH (14:32)
[2017-03-16 16:00] VITALS: BP 172/77; PULSE 100; RESP 16; TEMP 98.9; O2SAT 98
[2017-03-16] MEDS: PANTOPRAZOLE SODIUM 40 MG VIAL IV PUSH SCH (17:13)
[2017-03-16] MEDS: ENOXAPARIN SODIUM 40 MG/0.4 ML SYRINGE SQ SCH (17:14)
[2017-03-16 20:00] VITALS: BP 129/60; PULSE 95; RESP 17; TEMP 99.3; O2SAT 95
[2017-03-16] MEDS: INSULIN DETEMIR 100 UNITS/ML VIAL SQ SCH (20:53)
[2017-03-17] VITALS: BP 141/67; PULSE 95; RESP 18; TEMP 100; O2SAT 96
[2017-03-17] MEDS: INSULIN ASPART SUPPLEMENTAL SCALE SQ SCH ×6 (00:15→20:00)
[2017-03-17 07:43] LABS: BICARBONATE 22.8 MEQ/L (21.0-32.0); CALCIUM 7.4 MG/DL (8.5-10.1); CREATININE 0.61 MG/DL (0.60-1.30)
[2017-03-17 08:00] VITALS: BP 135/74; PULSE 89; RESP 18; TEMP 100.2; O2SAT 96
[2017-03-17 08:07] LABS: CALCIUM-PROTEIN CORRECTED 8.3 MG/DL (8.5-10.1); TOTAL PROTEIN 5.4 GM/DL (6.4-8.2)
--- NOTE | 2017-03-17 08:34 | HHI.PR ---
Subjective Remarks Follow up ileus, PVD. The patient has no complaints at this time. Abdominal pain has improved. States that his bowel movements are more formed now. Denies nausea, vomiting. Has been ambulating without difficulty. Objective Vitals Vital Signs Date Time Temp Pulse Resp B/P (MAP) Pulse Ox O2 Delivery O2 Flow Rate FiO2 03/17/17 00:00 100.0 95 18 141/67 (91) 96 03/16/17 20:00 99.3 95 17 129/60 (83) 95 03/16/17 16:00 98.9 100 16 172/77 (108) 98 03/16/17 12:00 98.4 103 17 147/65 (92) 99 I/O 03/16/17 03/16/17 03/16/17 03/17/17 03/17/17 03/17/17 07:00 15:00 23:00 07:00 15:00 23:00 Intake Total 600 ml 240 ml 460 ml 150 ml Output Total 3 ml Balance 600 ml 240 ml 457 ml 150 ml Intake Oral 600 ml 240 ml 460 ml 150 ml Output Urine Total 3 ml # Voids 1 2 3 # Bowel Movements 1 1 Result Diagram: 03/16/17 1317 03/17/17 0621 Imaging Last Impressions Foot X-Ray 03/13/17 0000 Signed Impressions: Service Date/Time: Monday, March 13, 2017 21:10 - CONCLUSION: Unremarkable exam for patient's age. Josue Owusu MD Chest X-Ray 03/12/17 0000 Signed Impressions: Service Date/Time: Sunday, March 12, 2017 17:26 - CONCLUSION: Mild central interstitial prominence. Central line in good position with no pneumothorax Jaswant Orellana MD Carotid Artery Ultrasound 03/07/17 0000 Signed Impressions: Service Date/Time: Tuesday, March 07, 2017 22:24 - CONCLUSION: Slightly elevated peak systolic velocity of the left internal coronary suggestive of 50-69%% stenosis. Moderate calcified atherosclerotic plaque is noted within the carotid bulb and internal carotid artery. Taj Gallegos MD Aorta w/Runoff CTA 03/07/17 0000 Signed Impressions: Service Date/Time: Tuesday, March 07, 2017 11:14 - CONCLUSION: 1. 2 lesions involving segment 4 the liver. Further evaluation is suggested utilizing MRI. 2. Hepatic steatosis. 3. 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 The right common iliac artery shows moderate stenosis. 4. Right lower extremity shows occlusion of the SFA with reconstitution of the popliteal artery. Runoff to the foot is via the posterior tibial artery and diseased anterior tibial artery. 5. Left lower extremity shows reconstitution of the common femoral artery with significant popliteal disease. Runoff is via a posterior tibial artery and diseased anterior tibial artery. Raul Ley Jr., MD Aorta CTA 03/07/17 0000 Signed Impressions: Service Date/Time: Tuesday, March 07, 2017 11:14 - CONCLUSION: 1. No flow-limiting stenosis, aneurysm or dissection involving the thoracic aorta. Proximal arch vessels are patent. 2. Diffuse atherosclerotic disease involving the infrarenal abdominal aorta without significant aneurysm or focal flow-limiting aortic stenosis. 3. 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 4. Diffusely decreased hepatic attenuation consistent with hepatic steatosis with 2 small ill-defined sub 1.5 cm lesions in segment 4 of the liver. Distribution favors focal fatty change although nonspecific. Report from MRI examination of 2010 appears to describe similar lesions although images are not available for review at this time. 5. Ancillary findings include cholelithiasis and small fat containing anterior abdominal periumbilical hernia. Romie Anaya MD Objective Remarks General: No acute distress. Heart: Regular rate and rhythm. No murmur. Lungs: Clear to auscultation bilaterally. No wheezes, rales, or rhonchi. Breathing is nonlabored. Abdomen: Soft, tender to palpation diffusely. +bowel sounds Extremities: No lower extremity edema. Psych: Alert and oriented. Procedures 03/12/17 aortobifemoral bypass and right femoropopliteal bypass Urinary Catheter: No Vascular Central Line Catheter: No A/P Problem List: (1) Ischemia of both lower extremities ICD Code: I99.8 - Other disorder of circulatory system (2) Claudication in peripheral vascular disease ICD Code: I73.9 - Peripheral vascular disease, unspecified (3) Peripheral arterial disease ICD Code: I73.9 - Peripheral vascular disease, unspecified Status: Acute (4) Hypertension ICD Code: I10 - Hypertension Status: Acute Assessment and Plan 1. Peripheral arterial disease, lower extremity ischemia, claudication: Status post aortobifemoral bypass and femoral-popliteal bypass. Management per vascular surgery. Continue pain control. Appreciate podiatry recommendations as well. Continue Plavix, aspirin, statin. 2. Hypertension: Continue lisinopril. Clonidine, Vasotec as needed. 3. Diabetes mellitus, type II: Oral hypoglycemic agents on hold. Continue Levemir. Monitor Accu-Cheks and cover with sliding scale insulin. Hemoglobin A1c 7.8. 4. Thrombocytopenia: Likely secondary to liver disease due to previous history of alcohol abuse. Patient is on Aspirin and Plavix. Platelets are trending up. Labs are pending this morning. Consider hematology consultation. 5. 1.2 cm liver lesion on CTA: Appears stable compared to MRI in 2011. 6. Tobacco abuse: Counseled to quit smoking. 7. GI prophylaxis: Protonix. 8. Postoperative ileus: Improved. 9. DVT prophylaxis: SCDs, Lovenox. 10. Low-grade fever: Check CBC, UA. Discharge Planning Per vascular surgery, possible discharge home tomorrow. Dejuan Ornelas MD Mar 17, 2017 08:34
[2017-03-17] MEDS: DOCUSATE SODIUM 100 MG CAP PO SCH ×2 (09:00→21:00)
--- NOTE | 2017-03-17 09:36 | PD.CAR.PN ---
CVT Progress Note Subjective/Hospital Course: Referral received Full consult to follow Obdulio Colbert 03/09/17 I reviewed laboratory and diagnostic procedures. This gentleman a vasculopath with severe vascular changes. While the aorta is patent, the origins of both common iliac arteries are significantly stenosed and it is felt this would be probably doable by endovascular stenting. As I go lower down, the left external iliac artery is completely occluded and the left common femoral reconstitutes from some branches around it. On the right side, external iliac is patent but severely stenosed and diseased. I can barely see the common femoral artery here. The SFA is bilaterally occluded and then popliteal artery reconstitutes as a weak vessel with very poor flow. Based on the above findings, in this age group the patient needs a more radical procedure to revascularize him because if we start stenting, I can stent the right side, leaving still external iliac on the left occluded and the patient would at that point need a fem-fem bypass to bring some blood to the left leg. While the right leg is the problem, that would worsen the same. 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 At some point in the future, we can probably go ahead with left fem-pop bypass, but right now I would stick to the diseased side with the gangrenous ulcer which is the right side. Anything less than this for this patient with ischemic pain at rest and ulcer is insufficient and will result in a prolonged course of placing various stents and bypasses until the patient finally loses his leg. In addition, flow limiting factors are below the level of the knee, but I cannot really see very well if all the three vessels are open. I believe there are only two vessels open on each side below the knee, although the blood flow is so faint that it is hard to tell. Once on the table, we may obtain arteriogram to look at this better. At this point, In summary I recommend aortobifemoral bypass and right fem-pop bypass and the patient agrees with the plan. He is a moderate risk patient considering his medical history. Cardiology help is appreciated. As far as carotid disease is concerned patient had the bilateral ultrasound and he has a about 60-70% left carotid stenosis which is currently asymptomatic In face of his peripheral vascular disease I would leave it at that and I will follow the patient now future in the office at which point he'll get a carotid CTA Patient scheduled for aortobifemoral bypass and right femoral-popliteal bypass for Sunday03/10/17 Discussed care with patient at length Scheduled to undergo aortobifemoral and right femoral-popliteal bypass Sunday All the questions answered and risks and benefits explained 03/13/2017 Patient status post aortobifemoral bypass and a right femoropopliteal bypass Abdomen is soft hypoactive bowel sounds Incisions are clean and dry Patient has palpable femoral pulses and strong dopplerable popliteal pulses as well as posterior tibial bilateral and dorsalis pedis on the right Feet are warm Plan Keep n.p.o. but for medication Out of bed Abdominal binder when out of bed and ambulation All things equal patient can transfer to floor tomorrow morning 03/15/2016 Patient doing well status post aortobifemoral bypass Incisions are clean and dry and patient has nice warm feet with palpable proximal and dopplerable distal pulses bilateral Abdomen still slightly distended patient clearly has postoperative ileus as expected due to complex nature of intra-abdominal operation and the retroperitoneal dissection Patients with retroperitoneal surgery like aortic aneurysm repairs do usually have a longer period of recovery from paralytic ileus Patient refused NG tube so we will just going to watch him carefully Plan Transfer to floor ambulate aggressively with binder Keep n.p.o. till passes [id number] 03/15/2017 Patient is doing well at this time Incisions are clean and dry Excellent proximal and distal pulses in feet are warm Abdomen is soft with few bowel sounds and patient had a bowel movement but is passing very little gas We will keep on clear liquids or at most advanced to full liquids and then hold off till patient's GI function completely returns, for retroperitoneal aortic surgery will be related with prolonged ileus and most instances DC Pulido Patient really needs to ambulate more and be out of bed 03/16/2017 Incisions are clean and dry Abdomen soft active bowel sounds status post aortobifemoral bypass Patient tolerating full liquids well Advance diet tomorrow and probably patient can go home Sunday Shower daily get incisions wet soap and water 03/17/2017 Patient doing well at this time status post aortobifemoral bypass and femoropopliteal bypass Incisions are clean and dry Patient has excellent proximal and distal pulses both feet are warm and well perfused with normal capillary refill Abdomen soft with active bowel sounds and patient is having regular bowel movements Encouraged to ambulate Advance diet Patient can be discharged from my point to rehab or home depending on circumstances any time Follow-up with my office in about 2 weeks Please encourage patient to take shower daily get incisions wet with soap and water so it does not get an infection Cleanliness and hygiene is very important especially in the face of artificial grafts Objective: Vital Signs Date Time Temp Pulse Resp B/P (MAP) Pulse Ox O2 Delivery O2 Flow Rate FiO2 03/17/17 08:00 100.2 89 18 135/74 (94) 96 03/17/17 00:00 100.0 95 18 141/67 (91) 96 03/16/17 20:00 99.3 95 17 129/60 (83) 95 03/16/17 16:00 98.9 100 16 172/77 (108) 98 03/16/17 12:00 98.4 103 17 147/65 (92) 99 Labs: Laboratory Tests Test 03/17/17 06:21 Blood Urea Nitrogen 12 MG/DL (7-18) Creatinine 0.61 MG/DL (0.60-1.30) Random Glucose 98 MG/DL (74-106) Total Protein 5.4 GM/DL (6.4-8.2) Calcium Level 7.4 MG/DL (8.5-10.1) Sodium Level 138 MEQ/L (136-145) Potassium Level 3.8 MEQ/L (3.5-5.1) Chloride Level 108 MEQ/L (98-107) Carbon Dioxide Level 22.8 MEQ/L (21.0-32.0) Anion Gap 7 MEQ/L (5-15) Estimat Glomerular Filtration Rate 160 ML/MIN (>89) Protein Corrected Calcium 8.3 MG/DL (8.5-10.1) Result Diagram: 03/16/17 1317 03/17/17 0621 Gregory Hunter MD Mar 17, 2017 09:36
[2017-03-17] MEDS: CLOPIDOGREL 75 MG TAB PO SCH (09:39)
[2017-03-17] MEDS: PRAVASTATIN SOD 20 MG TAB PO SCH (09:39)
[2017-03-17] MEDS: SODIUM CHLORIDE 0.9% FLUSH 10 ML FLUSH IV FLUSH SCH ×2 (09:39→21:00)
[2017-03-17] MEDS: ASPIRIN 325 MG TAB PO SCH (09:39)
[2017-03-17] MEDS: LISINOPRIL 10 MG TAB PO SCH (09:39)
[2017-03-17 12:00] VITALS: BP 139/65; PULSE 118; RESP 18; TEMP 99.1; O2SAT 96
[2017-03-17] MEDS: SODIUM CHLOR 0.9% 1000 ML INJ 1,000 ML IV SCH (14:32)
[2017-03-17 15:36] LABS: AUTOMATED NEUTROPHIL # 7.7 TH/MM3 (1.8-7.7); BASOPHIL % 0.4 % (0.0-2.0); EOSINOPHIL # 0.4 TH/MM3 (0-0.4); EOSINOPHIL % 3.1 % (0.0-4.0); HEMATOCRIT 26.3 % (39.0-51.0); HEMOGLOBIN 8.7 GM/DL (13.0-17.0); LYMPH % 23.9 % (9.0-44.0); MEAN CELL VOLUME 86.6 FL (80.0-100.0); MEAN CORPUSCULAR HEMOGLOBIN 28.6 PG (27.0-34.0); MEAN PLATELET VOLUME 8.9 FL (7.0-11.0); MONO % 11.1 % (0.0-8.0); MONOCYTE # 1.4 TH/MM3 (0-0.9); NEUT % 61.5 % (16.0-70.0); PLATELET COUNT 134 TH/MM3 (150-450); RED BLOOD COUNT 3.04 MIL/MM3 (4.50-5.90); RED CELL DISTRIBUTION WIDTH 12.4 % (11.6-17.2); WHITE BLOOD COUNT 12.4 TH/MM3 (4.0-11.0)
[2017-03-17 16:00] VITALS: BP 156/78; PULSE 101; RESP 18; TEMP 99.8; O2SAT 98
[2017-03-17 16:27] LABS: CORRECTED NUCLEATED RBC 1 /100 WBC (0-0); LYMPHOCYTES 23 % (9-44); MONOCYTES 8 % (0-8); NEUTROPHIL # MANUAL DIFF 8.4 TH/MM3 (1.8-7.7); NUCLEATED RED BLOOD CELL 1 (0-0); POLYS (SEG NEUTROPHILS) 68 % (16-70)
[2017-03-17 16:28] LABS: KERATOCYTES OCC (NORMAL); OVALOCYTES 1+ (NORMAL)
[2017-03-17] MEDS: ENOXAPARIN SODIUM 40 MG/0.4 ML SYRINGE SQ SCH (17:39)
[2017-03-17] MEDS: PANTOPRAZOLE SODIUM 40 MG VIAL IV PUSH SCH (17:39)
[2017-03-17 20:20] VITALS: BP 169/83; PULSE 98; RESP 16; TEMP 99.2; O2SAT 94
[2017-03-17] MEDS: INSULIN DETEMIR 100 UNITS/ML VIAL SQ SCH (21:31)
[2017-03-17 23:45] VITALS: BP 172/71; PULSE 94; RESP 16; TEMP 99.2; O2SAT 98
[2017-03-18] MEDS: INSULIN ASPART SUPPLEMENTAL SCALE SQ SCH ×4 (00:50→11:38)
[2017-03-18 04:15] VITALS: BP 155/83; PULSE 104; RESP 16; TEMP 100.2; O2SAT 96
[2017-03-18 08:00] VITALS: BP 152/78; PULSE 99; RESP 18; TEMP 99.7; O2SAT 95
[2017-03-18] MEDS: DOCUSATE SODIUM 100 MG CAP PO SCH (08:16)
[2017-03-18] MEDS: PRAVASTATIN SOD 20 MG TAB PO SCH (08:16)
[2017-03-18] MEDS: ASPIRIN 325 MG TAB PO SCH (08:16)
[2017-03-18] MEDS: LISINOPRIL 10 MG TAB PO SCH (08:17)
[2017-03-18] MEDS: CLOPIDOGREL 75 MG TAB PO SCH (08:17)
[2017-03-18] MEDS: SODIUM CHLORIDE 0.9% FLUSH 10 ML FLUSH IV FLUSH SCH (08:17)
--- NOTE | 2017-03-18 10:39 | HHI.FF ---
Face to Face Verification Diagnosis: (1) Peripheral arterial disease (2) Ischemia of both lower extremities (3) Claudication in peripheral vascular disease (4) Diabetes mellitus, type 2 Physical Therapy Order: Evaluate and Treat Occupational Therapy Order: Evaluate and Treat I have seen patient Niles Warner on 03/18/17. My clinical findings support the need for the requested home health care services because: Ltd mobility - disease progression Deconditioned w/ increased weakness Limited ability to care for self High risk of falls I certify that my clinical findings support that this patient is homebound because: Post-op weakness Unsteady gait/balance Poor cardiac reserve Deric Ramirez MD, R3 Mar 18, 2017 10:39
--- NOTE | 2017-03-18 10:40 | HHI.DCPOC ---
Discharge Care Plan Diagnosis: (1) Peripheral arterial disease (2) Hypertension (3) Diabetes mellitus, type 2 Goals to Promote Your Health * To prevent worsening of your condition and complications * To maintain your health at the optimal level Directions to Meet Your Goals Take your medications as prescribed Follow your dietary instruction Follow activity as directed Keep your appointments as scheduled Take your immunizations and boosters as scheduled If your symptoms worsen call your PCP, if no PCP go to Urgent Care Center or Emergency Room Smoking is Dangerous to Your Health. Avoid second hand smoke Call the 24-hour hour crisis hotline for domestic abuse at Deric Ramirez MD, R3 Mar 18, 2017 10:40
[2017-03-18] MEDS ORDERED: WALKER WHEELS/F1 MIS (10:43)
--- NOTE | 2017-03-18 10:48 | HHI.PR ---
Subjective Remarks Patient seen and examined this morning. Afebrile vital signs stable. Patient reports that he is doing well and wants to get out of the hospital today. He understands that he has been approved for a wheeled walker, but wishes to get a wheelchair. He agrees to going home with home health. Denies any chest pain or recurrence of breath. He reports that his pain in his legs is tolerable. Objective Vitals Vital Signs Date Time Temp Pulse Resp B/P (MAP) Pulse Ox O2 Delivery O2 Flow Rate FiO2 03/18/17 08:00 99.7 99 18 152/78 (102) 95 03/18/17 04:15 100.2 104 16 155/83 (107) 96 03/17/17 23:45 99.2 94 16 172/71 (104) 98 03/17/17 21:30 Room Air 03/17/17 20:20 99.2 98 16 169/83 (111) 94 03/17/17 16:00 99.8 101 18 156/78 (104) 98 03/17/17 12:00 99.1 118 18 139/65 (89) 96 I/O 03/17/17 03/17/17 03/17/17 03/18/17 03/18/17 03/18/17 07:00 15:00 23:00 07:00 15:00 23:00 Intake Total 150 ml 600 ml 480 ml 480 ml Balance 150 ml 600 ml 480 ml 480 ml Intake Oral 150 ml 600 ml 480 ml 480 ml IV Total 0 ml # Voids 3 3 2 3 # Bowel Movements 0 0 0 Result Diagram: 03/17/17 1456 03/17/17 0621 Imaging Last Impressions Foot X-Ray 03/13/17 0000 Signed Impressions: Service Date/Time: Monday, March 13, 2017 21:10 - CONCLUSION: Unremarkable exam for patient's age. Josue Owusu MD Chest X-Ray 03/12/17 0000 Signed Impressions: Service Date/Time: Sunday, March 12, 2017 17:26 - CONCLUSION: Mild central interstitial prominence. Central line in good position with no pneumothorax Jaswant Orellana MD Carotid Artery Ultrasound 03/07/17 0000 Signed Impressions: Service Date/Time: Tuesday, March 07, 2017 22:24 - CONCLUSION: Slightly elevated peak systolic velocity of the left internal coronary suggestive of 50-69%% stenosis. Moderate calcified atherosclerotic plaque is noted within the carotid bulb and internal carotid artery. Taj Gallegos MD Aorta w/Runoff CTA 03/07/17 0000 Signed Impressions: Service Date/Time: Tuesday, March 07, 2017 11:14 - CONCLUSION: 1. 2 lesions involving segment 4 the liver. Further evaluation is suggested utilizing MRI. 2. Hepatic steatosis. 3. 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 The right common iliac artery shows moderate stenosis. 4. Right lower extremity shows occlusion of the SFA with reconstitution of the popliteal artery. Runoff to the foot is via the posterior tibial artery and diseased anterior tibial artery. 5. Left lower extremity shows reconstitution of the common femoral artery with significant popliteal disease. Runoff is via a posterior tibial artery and diseased anterior tibial artery. Raul Ley Jr., MD Aorta CTA 03/07/17 0000 Signed Impressions: Service Date/Time: Tuesday, March 07, 2017 11:14 - CONCLUSION: 1. No flow-limiting stenosis, aneurysm or dissection involving the thoracic aorta. Proximal arch vessels are patent. 2. Diffuse atherosclerotic disease involving the infrarenal abdominal aorta without significant aneurysm or focal flow-limiting aortic stenosis. 3. 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 4. Diffusely decreased hepatic attenuation consistent with hepatic steatosis with 2 small ill-defined sub 1.5 cm lesions in segment 4 of the liver. Distribution favors focal fatty change although nonspecific. Report from MRI examination of 2011 appears to describe similar lesions although images are not available for review at this time. 5. Ancillary findings include cholelithiasis and small fat containing anterior abdominal periumbilical hernia. Romie Anaya MD Objective Remarks GEN: Well-developed, well-nourished patient. No acute distress. CV: Regular rate and rhythm without obvious murmurs LUNGS: Clear to auscultation bilaterally. Normal respiratory effort. No wheezes , rales, rhonchi. GI: Soft, nontender, nondistended. No palpable masses. Bowel sounds WNL. EXT: No edema. NEURO/PSYCH: Afocal. Awake, alert, and oriented x3. Appropriate insight and judgment. Procedures 03/12/17 aortobifemoral bypass and right femoropopliteal bypass Medications and IVs Current Medications Medications (Trade) Dose Ordered Sig/Nina Route Start Time Stop Time Status Last Admin (Tylenol) 650 mg Q4H PRN PO 03/07/17 16:00 03/15/17 15:17 (Tylenol) 650 mg Q6H PRN PO 03/07/17 16:00 Future Hold ([place] 5-325 Mg) 1 tab Q4H PRN PO 03/07/17 16:00 Future Hold (Milk Of Magnesia Liq) 30 ml Q12H PRN PO 03/07/17 16:00 (Senokot) 17.2 mg Q12H PRN PO 03/07/17 16:00 (Dulcolax Supp) 10 mg DAILY PRN RECTAL 03/07/17 16:00 (Lactulose Liq) 30 ml DAILY PRN PO 03/07/17 16:00 (Aspirin) 325 mg DAILY PO 03/08/17 09:00 03/18/17 08:16 (Catapres) 0.1 mg Q6H PRN PO 03/07/17 16:00 03/12/17 22:53 (Vasotec Inj) 2.5 mg Q6H PRN IV PUSH 03/07/17 16:00 03/15/17 05:00 (Prinivil) 10 mg DAILY PO 03/08/17 09:00 03/18/17 08:17 (Pravachol) 20 mg DAILY PO 03/08/17 09:00 03/18/17 08:16 Sodium Chloride 1,000 ml @ 40 mls/hr Q24H IV 03/12/17 18:00 03/15/17 08:22 (NS Flush) 2 ml UNSCH PRN IV FLUSH 03/12/17 17:30 (NS Flush) 2 ml BID IV FLUSH 03/12/17 21:00 03/18/17 08:17 (Zofran Inj) 4 mg Q6H PRN IV PUSH 03/12/17 17:30 (Protonix Inj) 40 mg Q24H IV PUSH 03/12/17 18:00 03/17/17 17:39 (Colace) 100 mg BID PO 03/12/17 21:00 03/15/17 19:45 (Morphine Inj) 4 mg Q2H PRN IV PUSH 03/12/17 17:30 03/14/17 04:07 (Narcan Inj) 0.4 mg UNSCH PRN IV PUSH 03/12/17 17:30 (Lovenox Inj) 40 mg Q24H SQ 03/13/17 16:15 03/17/17 17:39 (Duragesic 50 Mcg Patch.72 Hr) 1 patch Q3D T-DERMAL 03/12/17 20:00 03/15/17 19:46 (Plavix) 75 mg DAILY PO 03/12/17 19:15 03/18/17 08:17 Miscellaneous Information 1 Q3D T-DERMAL 03/15/17 20:00 03/15/17 19:46 (Levemir Inj) 8 units HS SQ 03/13/17 21:00 03/17/17 21:31 (D50w (Vial) Inj) 50 ml UNSCH PRN IV PUSH 03/13/17 16:30 (Glucagon Inj) 1 mg UNSCH PRN OTHER 03/13/17 16:30 (NovoLOG SUPPLEMENTAL SCALE) 1 Q4HR SQ 03/13/17 16:30 03/17/17 16:00 A/P Problem List: (1) Ischemia of both lower extremities ICD Code: I99.8 - Other disorder of circulatory system (2) Claudication in peripheral vascular disease ICD Code: I73.9 - Peripheral vascular disease, unspecified (3) Peripheral arterial disease ICD Code: I73.9 - Peripheral vascular disease, unspecified Status: Acute (4) Hypertension ICD Code: I10 - Hypertension Status: Acute Assessment and Plan 1. Peripheral arterial disease, lower extremity ischemia, claudication: Status post aortobifemoral bypass and femoral-popliteal bypass. Management per vascular surgery. Continue pain control. Appreciate podiatry recommendations as well. Continue Plavix, aspirin, statin. Cleared for discharge per vascular surgery. 2. Hypertension: Continue lisinopril. Clonidine, Vasotec as needed. 3. Diabetes mellitus, type II: Oral hypoglycemic agents on hold. Continue Levemir. Monitor Accu-Cheks and cover with sliding scale insulin. Hemoglobin A1c 7.8. 4. Thrombocytopenia: Likely secondary to liver disease due to previous history of alcohol abuse. Patient is on Aspirin and Plavix. Platelets are trending up. Labs are pending this morning. Consider hematology consultation. 5. 1.2 cm liver lesion on CTA: Appears stable compared to MRI in 2010. 6. Tobacco abuse: Counseled to quit smoking. 7. GI prophylaxis: Protonix. 8. Postoperative ileus: Improved. 9. DVT prophylaxis: SCDs, Lovenox. Discharge Planning Discharge him today Deric Ramirez MD, R3 Mar 18, 2017 10:48
--- NOTE | 2017-03-18 10:52 | HHI.DS ---
Discharge Summary Admission Date Mar 07, 2017 at 15:57 Discharge Date: Mar 18, 2017 Admitting Diagnosis Peripheral Aretery Disease. (1) Peripheral arterial disease Diagnosis: Principal ICD Codes: I73.9 - Peripheral vascular disease, unspecified Status: Acute (2) Claudication in peripheral vascular disease Diagnosis: Principal ICD Codes: I73.9 - Peripheral vascular disease, unspecified (3) Diabetes mellitus, type 2 Diagnosis: Secondary ICD Codes: E11.9 - Type 2 diabetes mellitus without complications (4) Hypertension Diagnosis: Secondary ICD Codes: I10 - Hypertension Status: Acute (5) Ischemia of both lower extremities Diagnosis: Principal ICD Codes: I99.8 - Other disorder of circulatory system Consultants Vascular surgery, podiatry Procedures 03/12/17 aortobifemoral bypass and right femoropopliteal bypass Brief History 1. Peripheral arterial disease, lower extremity ischemia, claudication: Status post aortobifemoral bypass and femoral-popliteal bypass. Management per vascular surgery. Continue pain control. Appreciate podiatry recommendations as well. Continue Plavix, aspirin, statin. 2. Hypertension: Continue lisinopril. Clonidine, Vasotec as needed. 3. Diabetes mellitus, type II: Oral hypoglycemic agents on hold. Continue Levemir. Monitor Accu-Cheks and cover with sliding scale insulin. Hemoglobin A1c 7.8. 4. Thrombocytopenia: Likely secondary to liver disease due to previous history of alcohol abuse. Patient is on Aspirin and Plavix. Platelets are trending up. Labs are pending this morning. Consider hematology consultation. 5. 1.2 cm liver lesion on CTA: Appears stable compared to MRI in 2010. 6. Tobacco abuse: Counseled to quit smoking. 7. GI prophylaxis: Protonix. 8. Postoperative ileus: Improved. 9. DVT prophylaxis: SCDs, Lovenox. CBC/BMP: 03/17/17 1456 03/17/17 0621 Significant Findings Laboratory Tests Test 03/16/17 13:17 03/17/17 06:21 03/17/17 14:56 White Blood Count 12.1 TH/MM3 (4.0-11.0) 12.4 TH/MM3 (4.0-11.0) Red Blood Count 2.83 MIL/MM3 (4.50-5.90) 3.04 MIL/MM3 (4.50-5.90) Hemoglobin 8.1 GM/DL (13.0-17.0) 8.7 GM/DL (13.0-17.0) Hematocrit 24.8 % (39.0-51.0) 26.3 % (39.0-51.0) Platelet Count 106 TH/MM3 (150-450) 134 TH/MM3 (150-450) Monocytes (%) (Auto) 10.9 % (0.0-8.0) 11.1 % (0.0-8.0) Neutrophils # (Auto) 8.0 TH/MM3 (1.8-7.7) Monocytes # (Auto) 1.3 TH/MM3 (0-0.9) 1.4 TH/MM3 (0-0.9) Total Protein 5.4 GM/DL (6.4-8.2) Calcium Level 7.4 MG/DL (8.5-10.1) Chloride Level 108 MEQ/L (98-107) Protein Corrected Calcium 8.3 MG/DL (8.5-10.1) Neutrophils # (Manual) 8.4 TH/MM3 (1.8-7.7) Nucleated Red Blood Cells 1 /100 WBC (0-0) Platelet Estimate LOW (NORMAL) Ovalocytes 1+ (NORMAL) Imaging Last Impressions Foot X-Ray 03/13/17 0000 Signed Impressions: Service Date/Time: Monday, March 13, 2017 21:10 - CONCLUSION: Unremarkable exam for patient's age. Josue Owusu MD Chest X-Ray 03/12/17 0000 Signed Impressions: Service Date/Time: Sunday, March 12, 2017 17:26 - CONCLUSION: Mild central interstitial prominence. Central line in good position with no pneumothorax Jaswant Orellana MD Carotid Artery Ultrasound 03/07/17 0000 Signed Impressions: Service Date/Time: Tuesday, March 07, 2017 22:24 - CONCLUSION: Slightly elevated peak systolic velocity of the left internal coronary suggestive of 50-69%% stenosis. Moderate calcified atherosclerotic plaque is noted within the carotid bulb and internal carotid artery. Taj Gallegos MD Aorta w/Runoff CTA 03/07/17 0000 Signed Impressions: Service Date/Time: Tuesday, March 07, 2017 11:14 - CONCLUSION: 1. 2 lesions involving segment 4 the liver. Further evaluation is suggested utilizing MRI. 2. Hepatic steatosis. 3. 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 The right common iliac artery shows moderate stenosis. 4. Right lower extremity shows occlusion of the SFA with reconstitution of the popliteal artery. Runoff to the foot is via the posterior tibial artery and diseased anterior tibial artery. 5. Left lower extremity shows reconstitution of the common femoral artery with significant popliteal disease. Runoff is via a posterior tibial artery and diseased anterior tibial artery. Raul Ley Jr., MD Aorta CTA 03/07/17 0000 Signed Impressions: Service Date/Time: Tuesday, March 07, 2017 11:14 - CONCLUSION: 1. No flow-limiting stenosis, aneurysm or dissection involving the thoracic aorta. Proximal arch vessels are patent. 2. Diffuse atherosclerotic disease involving the infrarenal abdominal aorta without significant aneurysm or focal flow-limiting aortic stenosis. 3. 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 4. Diffusely decreased hepatic attenuation consistent with hepatic steatosis with 2 small ill-defined sub 1.5 cm lesions in segment 4 of the liver. Distribution favors focal fatty change although nonspecific. Report from MRI examination of 2010 appears to describe similar lesions although images are not available for review at this time. 5. Ancillary findings include cholelithiasis and small fat containing anterior abdominal periumbilical hernia. Romie Anaya MD Hospital Course Patient was admitted due to significant pain in both of his cast when walking. He was found to have severe peripheral artery disease. On 03/12/17 aortobifemoral bypass and right femoropopliteal bypass was performed. Patient at this time is reporting improvement in his lower extremity pain. He is able to ambulate at this time. He is using a wheeled walker which is working well for him. He agrees to discharge home with home health. Pt Condition on Discharge: Stable Discharge Disposition: Disch w/ Home Health Serv Discharge Instructions DIET: Follow Instructions for: Diabetic Diet Activities you can perform: Regular-No Restrictions Follow up Referrals: PCP Follow-up - 1 Week Podiatry - 1 Week Vascular Surgery - 1 Week with Gregory Hunter MD New Medications: Walker with Front Wheels (Walker with Front Wheels) 1 Mis Mis EA .XX DIRECTED, #1 0 Refills Continued Medications: Aspirin (Aspirin) 81 Mg Tab 81 MG PO DAILY, #30 6 Refills Glipizide (Glucotrol) 5 Mg Tab 5 MG PO BID, #60 3 Refills Lisinopril (Prinivil) 10 Mg Tab 10 MG PO DAILY, #30 6 Refills Metformin XR 24 HR (Glucophage XR 24 HR) 500 Mg Tab 500 MG PO BID for 30 Days, 6 Refills Multiple Vitamin (Multivitamin) 1 Tab Tab 1 TAB PO BID, TAB Pravastatin (Pravastatin) 20 Mg Tab 20 MG PO DAILY for Cholesterol Management, #30 TAB 0 Refills Travoprost (Travatan Z) 0.004 % Rufino 1 DROP EACH EYE HS, ML Discontinued Medications: Glipizide (Glipizide) 5 Mg Tab 5 MG PO BIDAC for Blood Sugar Management, #60 TAB 0 Refills Take 30 minutes before a meal Lisinopril (Lisinopril) 10 Mg Tab 10 MG PO DAILY, #30 TAB 0 Refills Metformin (Metformin) 500 Mg Tab 500 MG PO BIDPC for Blood Sugar Management, #60 TAB 0 Refills Deric Ramirez MD, R3 Mar 18, 2017 10:52
[2017-03-18 12:00] VITALS: BP 149/74; PULSE 101; RESP 19; TEMP 99.2; O2SAT 96
--- NOTE | 2017-03-18 13:00 | PD.CAR.PN ---
CVT Progress Note Subjective/Hospital Course: Referral received Full consult to follow Obdulio Colbert 03/09/17 I reviewed laboratory and diagnostic procedures. This gentleman a vasculopath with severe vascular changes. While the aorta is patent, the origins of both common iliac arteries are significantly stenosed and it is felt this would be probably doable by endovascular stenting. As I go lower down, the left external iliac artery is completely occluded and the left common femoral reconstitutes from some branches around it. On the right side, external iliac is patent but severely stenosed and diseased. I can barely see the common femoral artery here. The SFA is bilaterally occluded and then popliteal artery reconstitutes as a weak vessel with very poor flow. Based on the above findings, in this age group the patient needs a more radical procedure to revascularize him because if we start stenting, I can stent the right side, leaving still external iliac on the left occluded and the patient would at that point need a fem-fem bypass to bring some blood to the left leg. While the right leg is the problem, that would worsen the same. 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 At some point in the future, we can probably go ahead with left fem-pop bypass, but right now I would stick to the diseased side with the gangrenous ulcer which is the right side. Anything less than this for this patient with ischemic pain at rest and ulcer is insufficient and will result in a prolonged course of placing various stents and bypasses until the patient finally loses his leg. In addition, flow limiting factors are below the level of the knee, but I cannot really see very well if all the three vessels are open. I believe there are only two vessels open on each side below the knee, although the blood flow is so faint that it is hard to tell. Once on the table, we may obtain arteriogram to look at this better. At this point, In summary I recommend aortobifemoral bypass and right fem-pop bypass and the patient agrees with the plan. He is a moderate risk patient considering his medical history. Cardiology help is appreciated. As far as carotid disease is concerned patient had the bilateral ultrasound and he has a about 60-70% left carotid stenosis which is currently asymptomatic In face of his peripheral vascular disease I would leave it at that and I will follow the patient now future in the office at which point he'll get a carotid CTA Patient scheduled for aortobifemoral bypass and right femoral-popliteal bypass for Sunday03/10/17 Discussed care with patient at length Scheduled to undergo aortobifemoral and right femoral-popliteal bypass Sunday All the questions answered and risks and benefits explained 03/13/2017 Patient status post aortobifemoral bypass and a right femoropopliteal bypass Abdomen is soft hypoactive bowel sounds Incisions are clean and dry Patient has palpable femoral pulses and strong dopplerable popliteal pulses as well as posterior tibial bilateral and dorsalis pedis on the right Feet are warm Plan Keep n.p.o. but for medication Out of bed Abdominal binder when out of bed and ambulation All things equal patient can transfer to floor tomorrow morning 03/15/2016 Patient doing well status post aortobifemoral bypass Incisions are clean and dry and patient has nice warm feet with palpable proximal and dopplerable distal pulses bilateral Abdomen still slightly distended patient clearly has postoperative ileus as expected due to complex nature of intra-abdominal operation and the retroperitoneal dissection Patients with retroperitoneal surgery like aortic aneurysm repairs do usually have a longer period of recovery from paralytic ileus Patient refused NG tube so we will just going to watch him carefully Plan Transfer to floor ambulate aggressively with binder Keep n.p.o. till passes [id number] 03/15/2017 Patient is doing well at this time Incisions are clean and dry Excellent proximal and distal pulses in feet are warm Abdomen is soft with few bowel sounds and patient had a bowel movement but is passing very little gas We will keep on clear liquids or at most advanced to full liquids and then hold off till patient's GI function completely returns, for retroperitoneal aortic surgery will be related with prolonged ileus and most instances DC Pulido Patient really needs to ambulate more and be out of bed 03/16/2017 Incisions are clean and dry Abdomen soft active bowel sounds status post aortobifemoral bypass Patient tolerating full liquids well Advance diet tomorrow and probably patient can go home Sunday Shower daily get incisions wet soap and water 03/17/2017 Patient doing well at this time status post aortobifemoral bypass and femoropopliteal bypass Incisions are clean and dry Patient has excellent proximal and distal pulses both feet are warm and well perfused with normal capillary refill Abdomen soft with active bowel sounds and patient is having regular bowel movements Encouraged to ambulate Advance diet Patient can be discharged from my point to rehab or home depending on circumstances any time Follow-up with my office in about 2 weeks Please encourage patient to take shower daily get incisions wet with soap and water so it does not get an infection Cleanliness and hygiene is very important especially in the face of artificial grafts 03/18/2017 Patient doing very well Ambulating without difficulty Incisions are clean and dry patient has excellent peripheral pulses and well- perfused feet From my point patient can be discharged any time Follow-up in my office in about 10 days Nothing to get at the care will sign off at this time Objective: Vital Signs Date Time Temp Pulse Resp B/P (MAP) Pulse Ox O2 Delivery O2 Flow Rate FiO2 03/18/17 12:00 99.2 101 19 149/74 (99) 96 03/18/17 08:10 Room Air 03/18/17 08:00 99.7 99 18 152/78 (102) 95 03/18/17 04:15 100.2 104 16 155/83 (107) 96 03/17/17 23:45 99.2 94 16 172/71 (104) 98 03/17/17 21:30 Room Air 03/17/17 20:20 99.2 98 16 169/83 (111) 94 03/17/17 16:00 99.8 101 18 156/78 (104) 98 Result Diagram: 03/17/17 1456 03/17/17 0621 Gregory Hunter MD Mar 18, 2017 13:00
[2017-03-18] MEDS: SODIUM CHLOR 0.9% 1000 ML INJ 1,000 ML IV SCH (15:05)
[2017-03-18 16:00] VITALS: BP 179/77; PULSE 111; RESP 18; TEMP 98.2; O2SAT 98
--- NOTE | 2017-03-18 16:12 | HHI.FF ---
Face to Face Verification Diagnosis: (1) Claudication in peripheral vascular disease (2) Hypertension (3) Diabetes mellitus, type 2 (4) Peripheral arterial disease (5) Ischemia of both lower extremities Physical Therapy Order: Evaluate and Treat Occupational Therapy Order: Evaluate and Treat Home Health Nursing Order: Medical education Signs/symptoms of disease process Diabetic education CHF education Wound care and dressing changes I have seen patient Niles Warner on 03/18/17. My clinical findings support the need for the requested home health care services because: Ltd mobility - disease progression Patient has SOB Deconditioned w/ increased weakness Med compliance is questionable Limited ability to care for self High risk of falls I certify that my clinical findings support that this patient is homebound because: Post-op weakness Hx COPD- exertion dyspnea/weakness Unsteady gait/balance Poor cardiac reserve Deric Ramirez MD, R3 Mar 18, 2017 16:12
== END 2017-03-18 17:01 | disposition home health service (06) | DRG 271 ==
LOC: NEPD 08:47 → NEDA 15:57 → N07A 17:12 → N07B 03-08 18:51 → N03B 03-12 17:15 → N06A 03-14 20:56
PROVIDERS: ADMIT Hospitalist; ATTEND Hospitalist
PROC: 041K0JL Bypass Right Femoral Artery to Popliteal Artery with Synthetic Substitute, Open Approach (ICD-10-PCS; 2017-03-12)
PROC: 04CM0ZZ Extirpation of Matter from Right Popliteal Artery, Open Approach (ICD-10-PCS; 2017-03-12)
PROC: 04100JK Bypass Abdominal Aorta to Bilateral Femoral Arteries with Synthetic Substitute, Open Approach (ICD-10-PCS; principal; 2017-03-12 10:56)
DX: I70.262 Atherosclerosis of native arteries of extremities with gangrene, left leg (principal); K56.0 Paralytic ileus; E11.52 Type 2 diabetes mellitus with diabetic peripheral angiopathy with gangrene; E11.621 Type 2 diabetes mellitus with foot ulcer; E11.65 Type 2 diabetes mellitus with hyperglycemia; D69.59 Other secondary thrombocytopenia; K91.89 Other postprocedural complications and disorders of digestive system; I70.211 Atherosclerosis of native arteries of extremities with intermittent claudication, right leg; I70.203 Unspecified atherosclerosis of native arteries of extremities, bilateral legs; E87.5 Hyperkalemia; I99.8 Other disorder of circulatory system; L97.519 Non-pressure chronic ulcer of other part of right foot with unspecified severity; F17.210 Nicotine dependence, cigarettes, uncomplicated; I10 Essential (primary) hypertension; I65.22 Occlusion and stenosis of left carotid artery; E78.5 Hyperlipidemia, unspecified; B19.20 Unspecified viral hepatitis C without hepatic coma; M19.90 Unspecified osteoarthritis, unspecified site; I70.8 Atherosclerosis of other arteries; K76.0 Fatty (change of) liver, not elsewhere classified; Z53.20 Procedure and treatment not carried out because of patient's decision for unspecified reasons; J44.9 Chronic obstructive pulmonary disease, unspecified; Z83.3 Family history of diabetes mellitus; Z82.49 Family history of ischemic heart disease and other diseases of the circulatory system; Z79.84 Long term (current) use of oral hypoglycemic drugs; Z86.73 Personal history of transient ischemic attack (TIA), and cerebral infarction without residual deficits
CPT/HCPCS: 71045; 71275; 73630; 74174; 75635; 80048; 80053; 80061; 82805; 82948; 83036; 84155; 85007; 85014; 85018; 85025; 85027; 85610; 85730; 86850; 86900; 86901; 86920; 88304; 88311; 93005; 93306; 93880; 94150; 99285; C1757; C1768; C9113; J0360; J0690; J1100; J1170; J1644; J1650; J1815; J2270; J2370; J2405; J2710; J2720; J3010; J3370; J7030; J7050; J7613; Q9967